=== PATIENT | female | born 2000 | race Caucasian/White ===

== ENCOUNTER 2021-11-16 09:08 | Outpatient (CLI) | payer OTHER, SELFPAY ==
--- NOTE | ~2021-11-16 | MR_ITS ---
EXAMINATION: MR foot RT wo con DATE: 11/16/2021 09:52 INDICATION: First metatarsal fibular sesamoid pain. TECHNIQUE: Magnetic resonance imaging (MRI) of the right fore/mid foot was performed without intraven ous contrast. Sequences included sagittal T1-weighted FSE, sagittal fluid sensitive FSE STIR, coronal PD-weighted FS FSE, coronal T1-weighted FSE, axial PD-weighted FS FSE, and axial PD-weighted FSE. COMPARISON: Radiographs dated 05/07/2019 and 10/05/2015 FINDINGS: Marrow edema at the fibular sesamoid of the right first metatarsal consistent with sesamoiditis. Ther e is linear low signal extending transaxial to the long axis of the foot across the fibular sesamoid which did not appear bipartite on the prior radiograph consistent with fragmentation/fracture. Bone m arrow was otherwise normal throughout the remainder of the mid and forefoot. No fracture or pathologi c marrow replacing process. Joint spaces appear preserved with no erosions to suggest inflammatory ar thritis. No joint effusions, tenosynovitis or other abnormal fluid collections. Lisfranc ligament com plex as well as the collateral ligament complex at the metatarsophalangeal and interphalangeal joints are normal. Visualized intrinsic musculature of the foot and visualized portions of the flexor and e xtensor tendons are normal. IMPRESSION: 1. Marrow edema and fragmentation of the right hallux fibular sesamoid which could represent sequela of either acute fracture or chronic sesamoiditis Reviewed, dictated and finalized at location A. INUITY COORDINATOR IMPRESSION: 1. Marrow edema and fragmentation of the right hallux fibular sesamoid which co uld represent sequela of either acute fracture or chronic sesamoiditis
== END 2021-11-16 09:09 ==
LOC: MICIMG 09:10
PROVIDERS: PCP Family Medicine; Visit Provider Podiatrist Foot & Ankle Surgery
DX: M79.661 Pain in right lower leg (principal)
CPT/HCPCS: 73718

== ENCOUNTER 2021-12-31 00:47 | Day surgery (SDC) | payer OTHER, SELFPAY ==
[2021-12-27 12:59] VITALS: BMI 31.4
--- NOTE | 2021-12-27 13:45 | PC.NURSE ---
Report to the Outpatient Waiting Room, entrance under the green pavilion located off [facility], at time __0730_ on date _12/31_. OR Time: _929 . - You and your visitor will be asked a series of questions to screen for COVID 19 for your protection. - A mask is required within the hospital. Preoperative COVID Testing Requirements: No COVID Test needed if: Patients may have clear liquids (water, carbonated beverages, clear teas, apple juice) until 3 hours prior to surgery with a maximum of 20 ounces. - No food from midnight until time of surgery - Infants may have breast milk until 4 hours before surgery, formula 6 hours prior to surgery. - Children will be allowed to drink immediately following surgery. If applicable, please bring a bottle or sippy cup to assist with drinking. Juice, water, soda, and popsicles are readily available. For infants on formula, please bring formula the day of surgery. Pacifiers are allowed. Take the following medications with a SIP of water the morning of surgery: __NONE Medications to discontinue per physician NONE Date to take last dose Please no make-up, nail guyanese, hairspray, perfume, deodorant, or body powder the day of surgery. No jewelry (including any body piercings) or valuables the day of surgery, leave them at home. Please take a shower or bath the night before, or the morning of, surgery with an antibacterial soap. Wear comfortable, loose fitting clothing. Children are encouraged to wear pajamas. - Jewelry must be removed prior to entering the operating room. Rings and piercings that are not removed may be cut off. - The hospital will not accept responsibility for valuables. - Please leave all valuables, including medications, at home the day of surgery. If you are going home after surgery, a licensed oil transport driver must drive you home. - NO public transportation without another adult. - We recommend that an adult stay with you for 24 hours following discharge. - We also recommend that you do not drive, make important decision, drink alcoholic beverages, or take any drugs that were not prescribed by your health care provider for at least 24 hours after your discharge time. For Pediatric surgeries, we recommend two adults accompany the child home (only one inside the building at this time). One visitor will be allowed to accompany the patient into the hospital. Patients visitor will be instructed to remain with patient at all times or leave the building. We will allow the visitor to come back to the postoperative area when patient is ready. Follow any additional instructions given to you from your surgeon. Telephone instructions given to __KIRSTEN and asked if any additional questions and then verbalized understanding. Patient advised to call surgeon office or pre surgery nurse liaison [phone] if any additional questions.
--- NOTE | ~2021-12-31 | XR_ITS ---
EXAMINATION: XR surgery orthopedic EXAM DATE: 12/31/2021 10:28 INDICATION: EXCISION FIBULAR SESAMOID RT FOOT TECHNIQUE: Fluoroscopy used during XR surgery orthopedic performed by Dr. Sly Vidal JR MD. Radiologist was not present for the imaging or procedure. Total fluoroscopic time of 9 seconds. The DAP for this procedure was 0.9 cGycm2. A total of 2 images sent to PACS from the exam. FINDINGS: Frontal image centered over the right 1st metatarsophalangeal joint demonstrates some subc utaneous gas along the expected location of 1st metatarsal lateral sesamoid. Correlate with procedur e note. IMPRESSION: Fluoroscopy used during sesamoid surgery. Reviewed, dictated and finalized at location A.
--- NOTE | 2021-12-31 07:11 | WPDHPUPDATE1 ---
History and Physical Update Update Date/Time: 12/31/21 07:11 History and Physical has been reviewed, including an updated exam of the patient. There are NO changes in the patient's condition. Risks, benefits, and alternatives have been discussed and questions answered. Patient agrees to proceed with procedure.
[2021-12-31 07:54] VITALS: BP 130/73; PULSE 74; RESP 18; TEMP 36.4; O2SAT 99
[2021-12-31] MEDS: LACTATED RINGERS 1,000 ML 30 ML IV CONT (08:05)
--- NOTE | 2021-12-31 08:50 | WPDANESEPPF ---
Anes - Initial Pre Proc Eval Procedure: Operation Date: 12/31/21 09:30 Proposed Procedures p Excision Fibular Sesamoid Right Foot - Sly Vidal JR, MD Date/Time: 12/31/21 08:50 Surgeon: Sly Vidal JR, MD Pre Op Diagnosis: chronic fibular sesamoiditis right foot Patient Data Age: 21 Gender: F Height: 1.7 m Weight: 97.1 kg Last Vital Signs Temp 36.4 C L 12/31/21 07:54 Pulse 74 12/31/21 07:54 Resp 18 12/31/21 07:54 BP 130/73 12/31/21 07:54 Pulse Ox 99 12/31/21 07:54 Allergies Allergy/AdvReac Type Severity Reaction Status Date / Time peanut Allergy Unknown Unknown Verified 12/31/21 07:50 Home Medications Medication Instructions Recorded Confirmed Type cetirizine [Zyrtec] 10 mg PO DAILY 12/27/21 12/31/21 History Patient hx anesthesia problems: none Family hx anesthesia problems: none Results Review: All pre-operative results and documents have been reviewed as part of the pre-operative evaluation. 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 Informed Consent: The patient's anesthetic plan and its attendant risks and benefits were discussed with the patient/family/POA. Questions were solicited and answers provided to the satisfaction of the patient/family/POA.
[2021-12-31] MEDS: ceFAZolin 2 GM/D5W 50 ML 2 GM/50 ML BAG IVPB (09:46)
[2021-12-31] MEDS: LIDOCAINE HCL 2% PF INJ 5 ML VIAL 20 ML INFILTRATE (10:07)
[2021-12-31 10:39] VITALS: BP 109/69; PULSE 64; RESP 14; O2SAT 97
--- NOTE | 2021-12-31 10:53 | W.PM.PROC2 ---
Procedure Note - Detailed Date of Procedure 12/31/21 Pre-op Diagnosis Chronic fibular sesamoiditis right foot with non healing transverse fracture Post-op Diagnosis Same Procedure Performed Excision of fibular sesamoid right foot Surgeon Sly Vidal JR, RENE Anesthesia General and Local Indications Chronic pain sub first metatarsal phalangeal joint right foot Description of Procedure Under mild sedation, the patient was brought in to the operating room, placed on the operating table in the supine position. A pneumatic ankle tourniquet was placed about the patient's ankle. Following general anesthesia, local anesthesia was obtained about the affected right foot utilizing 20 mL of a one to mix of 2% Lidocaine plain and 0.5% Marcaine plain to the tibial nerve. The foot was then scrubbed, prepped, and draped in the usual aseptic manner. An Esmarch bandage was then used to exsanguinate the patient's foot and the pneumatic ankle tourniquet was then inflated. Next, an incision was made starting along the plantar aspect of the first metatarsal phalangeal joint extending proximally 3cm. All bleeders were cauterized as necessary. Next the dissection was continued down to the fibular sesaoid it was exposed medially and laterally with Nita retractors. Fluroscopy was used to make certain that the correct sesamoid was dissected and than a 15 blade and [place] periosteal elevator was used to free the sesamoid, it was completely dissected and sent for gross and histopathology. The wound site was flushed with sterile saline. The surrounding tissue about the resected fibular sesamoid was identified and firmly reapproximated with 2-0 Vicryl. Next, the subcutaneous fat layer was reapproximated with 4-0 Vicryl. The deep subcutaneous tissue was reapproximated with 3.0 Vicryl and the skin was reapproximated with 3.0 Prolene in Vertical mattress and Simple interrupted suture technique. Upon completion of the procedure, the plantar incision was dressed with adaptic, 4x4 gauze, kerlix and coban. The pneumatic ankle tourniquet was then deflated and a prompt hyperemic response was noted to all digits of the affected foot. A CAM Walker boot was then applied. The patient did very well with the procedure and the anesthesia. The patient was transferred to the recovery room with vital signs stable and vascular status intact to all toes of the affected foot. Following a period of postoperative monitoring, the patient will be discharged home on the following written and oral postoperative instructions: 1. The patient should keep the dressing clean, dry, and intact. Use a cast protector bag with showers. 2. The patient will be strictly protected weight bearing with CAM walker boot. 3. Patient should ice and elevate the affected foot when at rest. 4. The patient is to contact Dr. Vidal for all postop care and if any problems arise. 5. Prescriptions were written for Percocet 5/325 dispensed 40 to be taken 1 p.o. q.4-6 hours as needed for severe pain. Estimated Blood Loss -1.0 Drains No Packing No Pathology Yes Complications No immediate complications Condition Stable Disposition Same day
[2021-12-31 11:10] VITALS: BP 107/68; PULSE 66
[2021-12-31] MEDS: oxyCODONE HCL (*CRX) 5 MG TAB IR PO (11:23)
[2021-12-31 11:40] VITALS: BP 125/82; PULSE 65
== END 2021-12-31 12:10 | disposition home or self-care (01) ==
PROVIDERS: PCP Family Medicine; Visit Provider Podiatrist Foot & Ankle Surgery
PROC: (CPT 28315; principal; 2021-12-31 09:30)
DX: M25.871 Other specified joint disorders, right ankle and foot (principal); M84.474A Pathological fracture, right foot, initial encounter for fracture; M19.071 Primary osteoarthritis, right ankle and foot; E66.9 Obesity, unspecified; Z68.33 Body mass index [BMI] 33.0-33.9, adult
CPT/HCPCS: 28315; 88304; 88309; 88311; A9270; J0690; J2250; J2270; J2704; J7120

== ENCOUNTER 2024-11-03 01:41 | Emergency (ER) | payer OTHER, MEDICAID, SELFPAY ==
--- OUTSIDE RECORDS SUMMARY | 2024-11-03 01:43 | XMS_ITS | Referral Summary ---
Author Organization [facility] Address [address] [place] [address] Phone Care Team Providers Care Valving Machine Operator Name Role Phone Ananya Quesada NP Primary Care Provider [phone] Jluis Robles MD Unavailable [phone] Allergies Active Allergy Reactions Criticality Noted Date Comments [place] Rash Medium 02/10/2011 Cat's Claw Eye irritation Low 02/10/2011 Peanut Oil Urticaria Medium 04/08/2010 Trichophyton Mentagrophytes Allergenic Extract Rash Medium 02/10/2011 Medications cetirizine (ZyrTEC) 10 mg tablet Take 1 tablet (10 mg total) by mouth daily Active vit 47-myrj-abbbs-dha 27mg iron- 800 mcg-250 mg capsule Take by mouth Active docusate sodium (COLACE) 100 mg capsuleIndication s:constipation,St ool Softener Take 1 capsule (100 mg total) by mouth 2 (two) times a day 30 capsule 4 Active Additional Information Patient not taking.Reported on 05/31/2024 gabapentin (NEURONTIN) 300 mg capsule Take 1 capsule (300 mg total) by mouth 2 (two) times a day 60 capsule 11 4 025 Active Additional Information Patient not taking.Reported on 05/31/2024 ibuprofen (ADVIL,MOTRIN) 600 mg tablet Take 1 tablet (600 mg total) by mouth 4 (four) times a day 30 tablet 4 Active Additional Information Patient not taking.Reported on 05/31/2024 lidocaine (LIDODERM) 5 % Place 2 patches on the skin daily Remove & discard patch within 12 hours or as directed by MD. 5 patch 1 4 Active NIFEdipine (PROCARDIA XL/ADALAT CC) 30 mg 24 hr tablet Take 1 tablet (30 mg total) by mouth daily 30 tablet 11 4 025 Active Additional Information Patient not taking.Reported on 05/31/2024 polyethylene glycol (MIRALAX) 17 gram/dose bulk powderIndications :constipation Take 17 g by mouth daily for 14 days 238 g 4 Active oxyCODONE (ROXICODONE) 5 mg immediate release tabletIndications :Pain Take 1 tablet (5 mg total) by mouth every 4 (four) hours as needed for pain 15 tablet 4 Active Additional Information Patient not taking.Reported on 05/31/2024 spironolactone (ALDACTONE) 50 mg tablet Take 1 tablet (50 mg total) by mouth daily 30 tablet 11 4 025 Active norethindrone (MICRONOR) 0.35 mg tabletIndications : Contraception Take 1 tablet (0.35 mg total) by mouth daily 1 po qd at same time of day 84 tablet 3 4 Active Active Problems Problem Noted Date Diagnosed Date Calculus of gallbladder with out cholecystitis without obstruction 04/18/2024 Overview (04/20/2024): 04/18/2024, 21:30 (Susie): Earlier today, patient reported right upper quadrant pain radiating through to her back. Denies nausea or vomiting. Right upper quadrant ultrasound ordered and performed - gallbladder f ull of stones without duct dilation according to the tech - final read pending. Mild right upper quadrant tenderness to palpation. Question of cholecystitis confounded by possible endometritis. Patient has been febrile and has an elevated white blood cell count. Consulted Dr. Raj Ugarte with [facility] who advised CT scan with IV contrast (ordered), and he will see her in the morning. Reviewed everything with the patient and answered questions to her satisfaction. 04/19/2024, PPD#3 (Helm) Patient continues to have RUQ and some pain that radiates to her back WBC: 18 > 22 > 23.4 despite antibiotics Continue amp/gent/clinda General surgery on board, planning for RA Lsc cholecystectomy for treatment of cholecystitis Recommend blood cultures to be drawn, RVP and urine culture Last febrile 04/18 on 2316 04/20/2024, POD#1 (Alicja) lsc martin S/p uncomplicated RA cholecystectomy WBC 23.4 > 16.7 Safe for discharge per general surgery Working on post-op pain control Antibiotics discontinued care following vaginal delivery 04/17 Overview (04/20/2024): 04/17/2024 PPD #1 (CHRISTY) 23 yo s/p of pre-term male . VSS, Afebrile Nifed 30 mg XL Magnesium See problem list O negative, rolando +, s/p rhogam /, Rubella Immune Baby O+ Rhogam ordered Mom is reporting chills/shaking. All labs and and Vitals are WNL - labs pending Baby is doing well Normal exam Not yet ambulating d/t mag, voiding, tolerating PO. Lochia WNL MOF: Breast MOC: undecided - discussed options VTE: Lovenox and SCDs Dispo: continue routine care 04/18/2024 PPD #2 (CHRISTY) VSS, Afebrile Nifed 30 mg XL S/p Magnesium Labs WNL O negative, rolando +, s/p rhogam /, Rubella Immune Baby O+ Rhogam given Mom is reporting RUQ pain Tender to palpation Ultrasound ordered Mom febrile overnight Amp/gent and clinda given Currently afebrile WBC 13>18>22 Uterus tender Baby is doing well Ambulating, voiding, tolerating PO. Lochia WNL MOF: Breast MOC: undecided - discussed options VTE: Lovenox and SCDs Dispo: continue routine care 04/19/2024, PPD#3 (Alicja) See other problems Ambulating, voiding, tolerating PO. Lochia WNL MOF: Both MOC: undecided - discussed options VTE: Lovenox (held for surgery) and SCDs Dispo: pending fever and treatment of acute cholecystitis 04/20/2024, PPD#4 (Alicja) See other problems Ambulating, voiding, tolerating PO. Lochia WNL Notable post-op pain: will add gabapentin 300 BID and lidocaine patches MOF: Breast MOC: undecided - discussed options VTE: Lovenox and SCDs Dispo: today pending pain control Encounter for induction of labor 04/15/2024 Overview (04/16/2024): Hillary Mosley is a 23 y.o. female at 36w3d who is dated by L=8wk and is being admitted for an induction of labor secondary to preeclampsia with severe features . Admit to L&D: Consents signed and placed in chart. Labs: O negative - s/p Rhogam (02/25), H&H: 11.6/34.2 . Induction of labor with misoprostol 25 mcg vaginally . - discussed induction process with pt including cervical ripening medications, CC, OT and AROM FWB: Reactive NST. Will initiate continuous monitoring ID: 3rd trimester HIV (>28 wga) negative on 02/16. GBS negative on 04/08 . RPR on admission: pending. History of genital HSV or HSV 1/2 seropositivity: No. Membrane Status: intact. Indications for UDS: none. Verbal consent obtained for UDS: Not indicated. MOF: Plans to breastfeed. Urine drug screen not indicated. Patient informed of results: N/A. MOC: Undecided on contraception. Considering hormonal IUD Pain management: Desires epidural. Post DVT prophylaxis: The patient has the following MAJOR risk factors BMI >/= 40 and the following MINOR risk factors preeclampsia. enoxaparin 40 mg daily will be ordered for VTE prophylaxis . 04/15/24, 2200 (KR) SVE without change, despite frequent ctx Patient comfortable FHT reactive S/p miso 25mcg PV x1. Will give another dose now Continue IOL 04/16/2024, 0900 (JACKIE): S/p misoprostol x 2, transitioned to OT S/p epidural - getting comfortable FHT cat 2 - rare LDs r/t low BP - anesthesia to bedside SVE with consent: /-3, unable to get good assessment of head d/t patient discomfort OT infusing at 6mu/hr - titrate as able per protocol 04/16/2024, 1040 (JACKIE): Pt now comfortable with epidural Discussed risk/benefit of AROM - all questions answered SVE: 50/-3, head well applied AROM and IUPC placed with consent (posterior placenta - IUPC guided anterior) Clear fluid with small clot Continue IOL 04/16/2024, 1630 (JACKIE): At bedside to assess labor progression Pain has been poorly controlled with epidural requiring several bolus doses. However, difficult to continue to dose epidural d/t BP response and subsequent late deceleration - pain located largely around urethra - denies allergy to iodine, shellfish or latex. No signs of allergic reaction Anesthesia to bedside for BP management and patient repositioned to her side S/p multiple position changes SVE and membrane sweep with consent: /-2, some very mild swelling noted posteriorly and slight caput Contractions are low amplitude and frequent - IUPC replaced, flushed and monitor reset. Resting tone 30-40mmHg - uterus palates soft - continue to monitor closely Plan: Stop OT and give 1mg IV propranolol, IV diphenhydramine and TUMS for cervical swelling. Restart OT in one hr at 2mu/hr and titrate as able Discussed with Dr. Helm Severe pre-eclampsia in third trimester 04/15/20 24 Overview (04/20/2024): 04/15/2024, 1530 (JACKIE): MR BP in clinic, now SR x 2 requiring spot treatment with IV labetalol Will initiate magnesium sulfate 4 gram bolus followed by 2 gram maintenance Give one time dose of nifedipine XL 30 mg - consider daily dosing pending BP control Daily labs: Ptl: normal LFTs: normal Creatinine: 0.5 Pr/Cr: 0.19 04/17/2024 PPD #1 (CHRISTY) BP's Stable. Magnesium infusing until 1999 Neuro checks WNL Nifed 30 mg XL given today Labs ordered for this morning 04/19/2024, PPD#3 (Alicja) - BP have been normotensive to mild range - completed magnesium therapy - Continue nifedipine 30 - PreE labs stable - will need BP check 04/19/2024, PPD#4 (Alicja) VSS Continue nifed 30 PreE labs stable Needs BP check in 2-3 days Preeclampsia, third trimester 04/15/2024 UTI (urinary tract infection) 10/09/2023 Rh negative state in antepartum period Supervision of normal first , antepartu m 10/05/2023 Class 3 severe obesity due t o excess calories without serious comorbidity with body mass index (BMI) of 40.0 to 44.9 in adult 01/09/2023 Assessment & Plan (02/10/2023 12:20 PM CDT): Discussed CHIP program,Calorie deficit and exercise Assessment & Plan (01/09/2023 2:01 PM CDT): Calorie intake discussed. Labs ordered. Healthy, low carbohydrate lifestyle and exercise for 150min/week recommended Allergic rhinitis 03/07/2012 01/09/2023 Assessment & Plan (02/10/2023 12:19 PM CDT): Discussed switching OTC allergy medications May benefit from seeing signals collector/analyst Assessment & Plan (01/09/2023 1:59 PM CDT): Follows with ENT, recently had turbinate resection procedure. Also being worked up for ARNIE. Has seen an signals collector/analyst in the past and had allergy shots offered but unable to do at that time d/t costs/time. She also has eczema rash that flares, inquiring about steroid shot to help, rash not present today. Discussed alternatives, will trial Atarax. Resolved Problems Problem Noted Date Diagnosed Date Resolved Date Popliteal cyst 07/29/2014 01/09/2023 01/09/2023 Right knee pain 07/29/2014 01/09/2023 01/09/2023 Acute serous otitis media 03/07/2012 01/09/2023 Immunizations Immunization Administration Dates Next Due DTaP 03/22/2005, 1,02/19/2000, 000,1999 HPV, Quadrivalent 05/21/2013,01/01/2013,10/30/19 13 Hep A, Pediatric 10/30/2012,04/08/2010 Hep B, Adolescent or Pediatric 07/25/2000,1999,1999 HiB 02/19/2000,1999,1999 Hib (PRP-D) 12/28/2000, 0,1999, 000 Hib (PRP-T) 12/28/2000 IPV 03/22/2005, 1,1999, 000 Influenza, Unspecified 09/11/2022,09/11/2021 MMR 03/22/2005,07/25/2000 Meningococcal Conjugate (Menveo) 10/30/2012 Meningococcal MCV4P (Menactra) 04/08/2016,2012 PPD TEST 03/22/2005,07/25/2000 Pneumococcal Conjugate PCV 13 02/19/2000 Pneumococcal Conjugate, Unspecified 12/28/2000,1 1999,02/19/2000 Pneumococcal Polysaccharide PPV23 12/28/2000, Tdap 02/26/2024,04/08/2010 Varicella 10/30/2000 Social History Tobacco Use Types Packs/Day Years Used Date Smoking Tobacco: Never Passive Smoke Exposure: Never Smokeless Tobacco: Never Tobacco Cessation:Counseling Given: Not Answered Social Connection and Isolat ion Panel [NHANES] Answer Date Recorded In a typical week, how many times do you talk on the phone with family, friends, or neighbors? More than three times a week 04/15/2024 How often do you get togethe r with friends or relatives? More than three times a week 04/15/2024 Attends Orthodox Services Not on file 04/15 Active Member of Clubs or Organizations Not on f ile 04/15/2024 Attends Club or Organization Meetings Not on blas e 04/15/2024 Marital Status Not on file 04/15/2024 AUDIT-C Answer Date Recorded Q1: How often do you have a drink containing alc ohol? Never 04/15/2024 Average Number of Drinks Not on file 024 Frequency of Binge Drinking Not on file 01/2024 Overall Financial Resource Strain (CARDIA) Answe r Date Recorded How hard is it for you to pa y for the very basics like food, housing, medical care, and heating? Not hard at all 04/15/2024 PHQ-2 Answer Date Recorded PHQ-2 Total Score (If total score is 3 or more points, staff should administer the PHQ-9) 0 04/15/2024 [facility] - Occupational Stress Questionnaire Answer Date Recorded Do you feel stress - tense, restless, nervous, or anxious, or unable to sleep at night because your mind is troubled all the time - these days? Not at all 04/15/2024 Exercise Vital Sign Answer Date Recorde d On average, how many days pe r week do you engage in moderate to strenuous exercise (like a brisk walk)? 0 days Minutes of Exercise per Session Not on file 04/15/2024 Hunger Vital Sign Answer Date Recorded Within the past 12 months, y ou worried that your food would run out before you got the money to buy more. Never true 04/15/20 24 Within the past 12 months, t he food you bought just didn't last and you didn't have money to get more. Never true 04/15/2024 PRAPARE - Transportation Answer Date Re corded In the past 12 months, has l ack of transportation kept you from medical appointments or from getting medications? No 01/2024 In the past 12 months, has l ack of transportation kept you from meetings, work, or from getting things needed for daily living? No 04/15/2024 [place] Depression Scale Answer Date Recorded [place] Depression Scale Total 0 05/31/2024 The thought of harming myself has occurred to me . Never 05/31/2024 Housing Stability Vital Sign Answer Mode e Recorded In the last 12 months, was t here a time when you were not able to pay the mortgage or rent on time? No 04/15/2024 Number of Times Moved in the Last Year Not on fi le 04/15/2024 At any time in the past 12 m [facility], were you homeless or living in a alf (including now)? No 04/15/2024 Personal Safety Answer Date Recorded Have you ever been in or are you currently in a harmful physical or emotional relationship or is someone making you feel afraid or unsafe? Denies 04/15/2024 Comments No Sex and Gender Information Value Date Recorded Sex Assigned at Not on file Legal Sex Female 6:49 AM CHILD CARE GROUP LEADER Gender Identity Not on file Sexual Orientation Not on file Last Filed Vital Signs Vital Sign Reading Time Taken Comments Blood Pressure 120/64 05/31/2024 3:32 PM CDT Pulse 77 04/20/2024 9:15 AM CDT Temperature 36.7 C (98 F) 04/20/2024 12:00 PM CDT Respiratory Rate 20 04/20/2024 6:15 AM CDT Oxygen Saturation 95% 04/20/2024 6:15 AM CDT Inhaled Oxygen Concentration - - Weight 104.3 kg (230 lb) 05/31/2024 3:32 PM CDT Height 170.2 cm (5' 7 ) 05/31/2024 3:32 PM CDT Body Mass Index 36.02 05/31/2024 3:32 PM CDT Plan of Treatment Not on file Procedures Procedure Name Priority Date/Time Associated Diagnosis Comments HEPATITIS C ANTIBODY Routine 10/05/2023 2:38 PM CHILD CARE GROUP LEADER Encounter for supervision of normal in first trimester, unspecified PAP WITH REFLEX TO HIGH RISK HPV Routine 10/05/2023 12:35 PM CHILD CARE GROUP LEADER Screening for cervical cancer from Last 3 Months or Most Recently Relevant to Health Maintenance Results * Hepatitis C antibody Blood (10/05/2023 2:38 PM CHILD CARE GROUP LEADER) Hep C Ab Nonreactive Nonreactive MAGALIE CAPPS Comment: Antibodies to HCV not detected. Does NOT exclude the possibility of recent exposure to HCV. Current interpretive data was last revised on 22 Interpretive Data Nonreactive: Antibodies to HCV not detected. Does NOT exclude the possibility of recent exposure to HCV. Equivocal: Equivocal for HCV antibodies. Supplemental molecular testing will be automatically performed to determine infection status in accordance with current CDC screening recommendations. Reactive: Positive for HCV antibodies. This may represent current or past HCV infection. Supplemental molecular testing will be automatically performed to determine current infection status in accordance with current CDC screening recommendations. Interpretive data was last revised on 2019. Blood 10/05/2023 2:38 PM CHILD CARE GROUP LEADER 10/05/2023 7:09 PM CHILD CARE GROUP LEADER Barbara Shine MD LAB MICROBIOLOGY - GENERA L ORDERABLES Edited Result - Final MAGALIE [address] [facility] Department [place] [address] * Pap with reflex to High Risk HPV and Genotyping (Cytology Component) (10/05/2023 12:35 PM CHILD CARE GROUP LEADER) Thin prep (Pap test) 10/05/2023 12:35 PM CHILD CARE GROUP LEADER 10/06/2023 2:11 AM CHILD CARE GROUP LEADER Narrative PATHOLOGY [facility] - 10/11/2023 9:36 AM CHILD CARE GROUP LEADER EPIC results best viewed via link to PDF [facility] [place] [address] Note to Patients: This report may contain a detailed description of human tissue sent by a health care provider to the laboratory for pathologic evaluation. The content of this report is essential for diagnosis and may provide important critical findings. This information may be unfamiliar to patients to review without a medical professional present. It is advised that the patient review this report in the presence of a health care provider who can answer questions and explain the details. CYTOPATHOLOGY REPORT FINAL Patient Name: HILLARY MOSLEY Gender: F : 2000 (Age: 23) Address: [address] [place] [address] Hospital #: [id number] Service: DEFAULT Location: Patient Type: [facility] SPECIMEN Taken: 10/05/2023 Received: 10/06/2023 Accessioned: 10/06/2023 Reported: 10/11/2023 Physician(s): Barbara Shine M.D. FINAL INTERPRETATION SOURCE OF SPECIMEN Liquid based Thin Prep pap with Reflex HPV: STATEMENT OF ADEQUACY - Satisfactory for evaluation - Endocervical cells/transformation zone sample present GENERAL CATEGORIZATION: - Negative for squamous intraepithelial lesion or malignancy INTERPRETATION: - Shift in milena suggestive of bacterial vaginosis - Acute inflammation present lwl/10/11/2023 09:36 Tyler Vaughn MS, CT(ASCP)PA Report Electronically Reviewed and Signed Out By Tyler Vaughn MS, CT(ASCP)CHERYL 10/11/2023 09:36:46 Cervicovaginal Cytology (Pap Test) Disclaimer: The Pap test is a screening test used to detect cervical cancer and its precursors; it is not a diagnostic procedure. False negative and false positive results do occur. Pap test results should be interpreted in the context of pertinent clinical information and biopsy results as indicated. [facility] Clinical Laboratory Improvement Amendments (CLIA) mandate that cytologic and histologic results be correlated for laboratory automotive quality manager & improvement standards. FOR ALL HIGH-GRADE CASES we request submission of follow-up histological material and/or reports that have not been previously provided so that we may fulfill said required standards. Gross Description A. Liquid based Thin Prep pap with Reflex HPV: Cervical/vaginal - Screening ThinPrep with GC/Chlamydia Clinical Diagnosis and History Last Menstrual Period: 08/04/23 The patient is a 23 year old woman with abnormal pap. Report Images and scanned documents, if included only viewable in PDF version The performance characteristics of some immunohistochemical stains, in-situ hybridization and fluorescence in-situ hybridization tests and immunophenotyping by flow cytometry cited in this report (if any) were determined by the Surgical Pathology Department at [facility] as part of an ongoing type disk quality control supervisor program and in compliance with federally mandated regulations drawn from the Clinical Laboratory Improvement Act of 1988 (CLIA '88). Some of these tests rely on the use of analyte specific reagents and are subject to specific labeling requirements by the US Food and Drug Administration. Such diagnostic tests may only be performed in a facility that is certified by the Department of Health and Human Services as a high complexity laboratory under CLIA '88. The FDA has determined that such clearance or approval is not necessary. This test is used for clinical purposes. It should not be regarded as investigational or for research. Nevertheless, federal rules concerning the medical use of analyte specific reagents require that the following disclaimer be attached to the report: This test was developed and its performance characteristics determined by the Surgical Pathology Department of [facility]. It has not been cleared or approved by the U. S. Food and Drug Administration. Barbara Shine MD LAB CYTOLOGY ORDERABLES F inal Result [facility] from Last 3 Months or Most Recently Relevant to Health Maintenance Insurance IDPA [facility] CHOICE PLUS IDPA Advance Directives For more information, please contact: [phone] * Full Code (Latest Code Status on File) Date Activated Date Inactivated Comments 04/17/2024 1:22 AM 04/20/2024 5:03 PM * Full Code Date Activated Date Inactivated Comments 04/15/2024 3:50 PM 04/17/2024 1:22 AM Full CPR in ca se of cardiopulmonary arrest Care Teams Valving Machine Operator Relationship Specialty Start Date End Date Ananya Quesada NP [address] [facility] [address] [place] [address] PCP - General Family Medicine 01/09/23 Jluis Robles MD [address] [place] [id number] Otolaryngology 01/09/23
--- OUTSIDE RECORDS SUMMARY | 2024-11-03 01:43 | XMS_ITS | Patient Health Summary ---
Author Organization [facility] Address [address] [place] [address] Care Team Providers Care Pill Packer Name Role Phone Unavailable Primary Care Provider Unavailabl e Note from [facility] [place] [facility] [place]non-owned Affiliates and Associated Physician Practices is amultiple site organization consisting of ambulatory clinics and hospital sitesin [place], [place], [place] and [place]. This disclosure is being madepursuant to the Care Everywhere program and may not contain all information available regarding this patient. Last updated 18.[facility] Allergies * Cat's Claw * Grassleaf Sweetflag Rhizome * Trichophyton Mentagrophytes * Peanut Oil(Urticaria) Medications * Be aware that medications may not be up to date on this document. Alwaysverify current medications with the patient. * adapalene-benzoyl peroxide (EPIDUO) 0.1-2.5 % gel(Started 12/03/2015) Apply to affected area at bedtime 2 refills left * clindamycin (CLINDAGEL) 1 % gel(Started 12/03/2015) Apply to affected area 2 times daily 2 refills left * triamcinolone acetonide (KENALOG) 0.1 % cream(Started 02/16/2017) DAMON EXT AA BID FOR 14 DAYS 1 refill left Active Problems Problem Noted Date Diagnosed Date Popliteal cyst 07/29/2014 Right knee pain 07/29/2014 Allergic rhinitis 03/07/2012 Acute serous otitis media 03/07/2012 Immunizations * DTaP VACCINE IM (6wk-6yrs)(Given 03/22/2005, 12/28/2000, 02/19/2000, 1999, 1999) * HEP A PEDS 2 DOSE(Given 10/30/2012, 04/08/2010) * HEP B VACCINE, PED/ADOL(Given 07/25/2000, 02/19/2000, 1999) * HIB BOOSTER(Given 12/28/2000, 02/19/2000, 1999, 1999) * Human Papilloma Virus Quadrivalent Vaccine(Given 05/21/2013, 01/01/2013, 10/30/2012) * MENINGOCOCCAL CONJUGATE (MCV4P)(Given 04/08/2016, 10/30/2012) * MMR(Given 03/22/2005, 07/25/2000) * PNEUMOCOCCAL CONJ, PEDS(Given 12/28/2000, 07/25/2000, 02/19/2000) * POLIO IPV(Given 03/22/2005, 10/30/2000, 1999, 1999) * PPD(Given 03/22/2005, 07/25/2000) * TDAP (7yrs+)(Given 04/08/2010) * VARICELLA(Given 10/30/2000) Social History Tobacco Use Types Packs/Day Years Used Date Smoking Tobacco: Never Smokeless Tobacco: Never Alcohol Use Standard Drinks/Week Comments No 0 (1 standard drink = 0.6 oz pur e alcohol) Sex and Gender Information Value Date Recorded Sex Assigned at Not on file Gender Identity Not on file Sexual Orientation Not on file Last Filed Vital Signs Vital Sign Reading Time Taken Comments Blood Pressure 122/76 05/26/2016 4:01 PM CDT Pulse 64 05/26/2016 4:01 PM CDT Temperature 37.6 C (99.7 F) 06/27/2017 11:12 AM CDT Respiratory Rate - - Oxygen Saturation - - Inhaled Oxygen Concentration - - Weight 70.8 kg (156 lb) 06/27/2017 11:12 AM CDT Height 168.9 cm (5' 6.5 ) 02/16/2017 1:59 PM CDT Body Mass Index - - Procedures * CULTURE STREP GROUP A(Performed 06/27/2017) Performed for Sore throat * STREP A SCREEN - POINT OF CARE (AMB)(Performed 06/27/2017) Performed for Sore throat * MRI LOWER EXT ANY JOINT NON CONTRAST RIGHT(Performed 08/04/2014) Performed for Right knee pain, Popliteal cyst, right * US EXTREMITY NON VASCULAR RIGHT(Performed 07/20/2014) Performed for Cyst of right knee joint * XR KNEE LEFT 3VW(Performed 04/16/2012) Performed for Left knee injury * ALLERGEN PEDIATRIC MARCH PROFILE IGE(Performed 03/25/2009) Results * CULTURE STREP GROUP A (06/27/2017 11:34 AM CDT) Beta-Strep Culture, Group A Only Negative [facility] ACCOUNT BILL Microbiology ENTIRE THROAT (SURFACE REGION OF NECK) / Unknown 06/27/2017 11:34 AM CDT 06/27/2017 Narrative Resulting Agency Comment [facility] [address] [id number] Leobardo Parmar DO LAB - MICROBIOL OGY ORDERABLES [facility] ACCOUNT BILL [address] [place] [address] * STREP A SCREEN - POINT OF CARE (AMB) (06/27/2017) Strep A Rapid POCT Negative Negative Strep A Internal Control Present Other ENTIRE THROAT (SURFACE REGION OF NECK) / Unknown 06/27/2017 Leobardo Parmar DO LAB - POINT OF CARE ORDERABLES * MRI LOWER EXT ANY JOINT NON CONTRAST RIGHT (08/04/2014 4:56 PM DOWEL INSERTING MACHINE OPERATOR) Anatomical Region Laterality Modality Lower Extremity Magnetic Resonan ce 08/04/2014 6:04 PM DOWEL INSERTING MACHINE OPERATOR Impressions 08/04/2014 6:22 PM DOWEL INSERTING MACHINE OPERATOR 1. Popliteal cyst, with maximum dimensions of 5.7 x 2.3 x 2.3 cm. This contains a few fine internal septations. There is no evidence of leakage/rupture. 2. 1.4 x 0.6 cm ganglion cyst along the anterior aspect of the proximal tibiofibular joint. 3. Otherwise normal MRI of the knee. Narrative 08/04/2014 6:22 PM DOWEL INSERTING MACHINE OPERATOR EXAM: MRI right knee without intravenous contrast HISTORY: 14-year-old female with knee pain and bump on the back of the knee, but no known injury. Clinical diagnosis of popliteal cyst. TECHNIQUE: MRI examination of the right knee was performed using multiple pulse sequences in multiple planes, without intravenous contrast. COMPARISON: None FINDINGS: The study is interpreted without radiographic correlation. Image quality is good. 2 markers were placed at the posterior medial aspect of the knee to indicate the symptomatic area. Corresponding to the markers, there is a protrusion of fluid from the posterior aspect of the knee extending between the semimembranosus and medial head of the gastrocnemius tendons, consistent with a popliteal cyst. Maximum dimensions are 2.3 x 2.3 cm (axial; series 3 image 15) x 5.7 cm (craniocaudal; series 5 image 22). A few fine internal septa are present within the popliteal cyst but there is otherwise no internal debris. There is no surrounding edema or fluid to suggest leakage or rupture. There is a 1.4 x 0.6 cm T2 hyperintense multilobulated structure along the anterior aspect of the proximal tibiofibular joint (series 5 image 13, series 6 images 18-20) consistent with a small ganglion cyst. The anterior and posterior cruciate ligaments are normal. The medial collateral ligament, conjoined tendon, and iliotibial band are normal. The popliteus is normal. There is no tear of the medial or lateral menisci. The root attachments are intact. The articular cartilage in the medial, lateral, and patellofemoral compartments is normal, without thinning or defect. The patella is positioned normally. The medial and lateral retinacula are intact. The quadriceps and patellar tendons are normal. There is minimum edema in the superolateral aspect of Hoffa's fat (series 5 image 9). Marrow signal is normal. There is no fracture or dislocation. There is no effusion. The muscles are normal in bulk and signal. Procedure Note Fletcher Farmer MD - 08/04/2014 EXAM: MRI right knee without intravenous contrast HISTORY: 14-year-old female with knee pain and bump on the back of the knee, but no known injury. Clinical diagnosis of popliteal cyst. TECHNIQUE: MRI examination of the right knee was performed using multiple pulse sequences in multiple planes, without intravenous contrast. COMPARISON: None FINDINGS: The study is interpreted without radiographic correlation. Image quality is good. 2 markers were placed at the posterior medial aspect of the knee to indicate the symptomatic area. Corresponding to the markers, there is a protrusion of fluid from the posterior aspect of the knee extending between the semimembranosus and medial head of the gastrocnemius tendons, consistent with a popliteal cyst. Maximum dimensions are 2.3 x 2.3 cm (axial; series 3 image 15) x 5.7 cm (craniocaudal; series 5 image 22). A few fine internal septa are present within the popliteal cyst but there is otherwise no internal debris. There is no surrounding edema or fluid to suggest leakage or rupture. There is a 1.4 x 0.6 cm T2 hyperintense multilobulated structure along the anterior aspect of the proximal tibiofibular joint (series 5 image 13, series 6 images 18-20) consistent with a small ganglion cyst. The anterior and posterior cruciate ligaments are normal. The medial collateral ligament, conjoined tendon, and iliotibial band are normal. The popliteus is normal. There is no tear of the medial or lateral menisci. The root attachments are intact. The articular cartilage in the medial, lateral, and patellofemoral compartments is normal, without thinning or defect. The patella is positioned normally. The medial and lateral retinacula are intact. The quadriceps and patellar tendons are normal. There is minimum edema in the superolateral aspect of Hoffa's fat (series 5 image 9). Marrow signal is normal. There is no fracture or dislocation. There is no effusion. The muscles are normal in bulk and signal. IMPRESSION 1. Popliteal cyst, with maximum dimensions of 5.7 x 2.3 x 2.3 cm. This contains a few fine internal septations. There is no evidence of leakage/rupture. 2. 1.4 x 0.6 cm ganglion cyst along the anterior aspect of the proximal tibiofibular joint. 3. Otherwise normal MRI of the knee. Lizbeth Rueda MD MR ORDERABLES * US EXTREMITY NON VASCULAR RIGHT (07/20/2014) Anatomical Region Laterality Modality Lower Extremity, Upper Extremity Other Izabela Tovar MD US ORDERABLES * XR KNEE 3 VW LEFT (04/16/2012) Anatomical Region Laterality Modality Lower Extremity Other Ely Allen MD DIAGNOSTIC IMAGING O RDERABLES * (ABNORMAL) RAST PEDIATRIC PROFILE (03/25/2009 4:07 PM CDT) Allergen Milk <0.35 kU/L [facility] Class 0 [facility] Comment: Test Performed at: [facility] [address] [place] [address] CELSA MICHELLE MD Allergen Soybean 0.58(H) kU/L [facility] Class 1 [facility] Allergen Codfish <0.35 kU/L [facility] 0 [facility] Allergen Dermatophagoides farinae <0.35 kU/L [facility] 0 [facility] Allergen Alternaria alternata 10.90(H) kU/L [facility] Class 3 [facility] Allergen Cat Dander 0.99(H) kU/L [facility] Class 2 [facility] Allergen Dog Dander <0.35 kU/L [facility] 0 [facility] Allergen Egg White <0.35 kU/L [facility] Class 0 [facility] Allergen Wheat 0.65(H) kU/L [facility] Class 1 [facility] Allergen Peanut 0.40(H) kU/L [facility] Class 1 [facility] Allergen Cockroach [place]an <0.35 kU/L [facility] Class 0 [facility] Allergen Dermatophagoides pteronyssinus <0.35 kU/L [facility] Class 0 [facility] Allergen C Herbarum <0.35 kU/L [facility] Class 0 [facility] Allergen Shrimp <0.35 kU/L [facility] 0 [facility] Allergen [place] 0.64(H) kU/L [facility] Class 1 [facility] IgE 71 <EF=247 kU/L [facility] 03/25/2009 4:07 PM CDT 03/25/2009 4:07 PM CDT Izabela Tovar MD LAB - CHEMISTRY TAMARA [facility] Organization Address City/State/ZIP Co de Phone Number [facility] [phone] [place] [address]
--- OUTSIDE RECORDS SUMMARY | 2024-11-03 01:43 | XMS_ITS | Clinical Summary ---
Author Organization [facility] Address [address] [place] [address] Phone Care Team Providers Care Front Desk Supervisor Name Role Phone Ananya Quesada NP Primary Care Provider [phone] Jluis Robles MD Unavailable [phone] Allergies Active Allergy Reactions Criticality Noted Date Comments [place] Rash Medium 02/10/2011 Cat's Claw Eye irritation Low 02/10/2011 Peanut Oil Urticaria Medium 04/08/2010 Trichophyton Mentagrophytes Allergenic Extract Rash Medium 02/10/2011 Medications cetirizine (ZyrTEC) 10 mg tablet Take 1 tablet (10 mg total) by mouth daily Active vit 66-[id number]-[id number]-dha 27mg iron- 800 mcg-250 mg capsule Take [...] cell count. Consulted Dr. Raj Ugarte with [facility] who advised CT scan with IV [...] OTC allergy medications May benefit from seeing bottom turning lathe turner Assessment & Plan (01/09/2023 1:59 PM CDT): Follows with ENT, recently had turbinate resection procedure. Also being worked up for ARNIE. Has seen an bottom turning lathe turner in the past and had allergy shots [...] Polysaccharide PPV23 12/28/2000, Tdap 02/26/2024,04/08/2010 Varicella 10/30/2000 Surgical History Surgery Date Site/Laterality Comments TONSILLECTOMY/ADENOIDECTOMY NASAL TURBINATE REDUCTION HERNIA REPAIR FOOT SURGERY Left Medical History Medical History Date Comments Abnormal Pap smear of cervix Family History Medical History Relation Name Comments Hypertension Father Hypothyroidism Mother Hypothyroidism Sister Breast cancer Neg Hx Colon cancer Neg Hx Ovarian cancer Neg Hx Uterine cancer Neg Hx Relation Name Status Comments Father Mother Sister Social History Tobacco Use Types Packs/Day Years [...] than three times a week 04/15/2024 Attends [employer] Services Not on file 04/15 Active Member [...] staff should administer the PHQ-9) 0 04/15/2024 [facility] - Occupational Stress Questionnaire Answer Date Recorded [...] things needed for daily living? No 04/15/2024 [place] Depression Scale Answer Date Recorded [place] Depression Scale Total 0 05/31/2024 The thought [...] any time in the past 12 m [facility], were you homeless or living in a mcc (including now)? No 04/15/2024 Personal Safety Answer Date Recorded Have you ever been in or are you currently in a harmful physical or emotional relationship or is someone making you feel afraid or unsafe? Denies 04/15/2024 Comments No Sex and Gender Information Value Date Recorded Sex Assigned at Not on file Legal Sex Female 6:49 AM PETROLEUM ANALYST Gender Identity Not on file Sexual Orientation Not on file Obstetrics History Para Term AB IAB SAB Ectopic Multiple Livin g Live Births 1 1 1 0 1 1 Date Outcome GA Total Labor Labor/2nd/3rd Weight Sex Type Anes PTL Rosario A1 A5 Name Clin 2023 36w 4d 0h 38m 0h 30m/0h 08m 2.97 kg (6 lb 8.8 oz) M Vagina l Epidur al Y Livin g 7 9 Yadav Freedom Helm, Michaela Pickens MD Complications:Pre eclampsia, Post Hemorrhage Delivery Location:[facility] ([facility]) Last Filed Vital Signs Vital Sign Reading [...] 05/31/2024 3:32 PM CDT Plan of Treatment Health Maintenance Due Date Last Done Comments Varicella Vaccines (2 of 2 - 2-dose childhood series) 2003 10/30/2000 Regular Well Visit/Exam 18-64 2017 Influenza Vaccine (#1) 2024 09/11/2022, 2021 Cervical Cancer Screening 10/05/2024 10/05/2023 Depression Screening 05/31/2025 05/31/2024, 04/15/2024, 04/15/2024, Additional history exists DTaP/Tdap/Td Vaccine (8 - Td or Tdap) 02/25/2034 02/26/2024, 04/08/2010, 03/22/2005, Additional history exists Hepatitis B Screening Completed 07/25/2000 , 02/19/2000, 1999 Pneumococcal vaccine <65 Completed 001, 12/28/2000, 07/25/2000, Additional history exists HPV Vaccines Completed 05/21/2013, 12/11, 10/30/2012 Hepatitis C Screening Completed 10/05/2023 Procedures Procedure Name Priority Date/Time Associated Diagnosis Comments HEPATITIS C ANTIBODY Routine 10/05/2023 2:38 PM PETROLEUM ANALYST Encounter for supervision of normal in first trimester, unspecified PAP WITH REFLEX TO HIGH RISK HPV Routine 10/05/2023 12:35 PM PETROLEUM ANALYST Screening for cervical cancer from Last 3 Months or Most Recently Relevant to Health Maintenance Results * Hepatitis C antibody Blood (10/05/2023 2:38 PM PETROLEUM ANALYST) Hep C Ab Nonreactive Nonreactive MAGALIE CAPPS [...] revised on 2019. Blood 10/05/2023 2:38 PM PETROLEUM ANALYST 10/05/2023 7:09 PM PETROLEUM ANALYST us Barbara Shine MD LAB MICROBIOLOGY - GENERA L ORDERABLES Edited Result - Final MAGALIE [address] [facility] [place] [address] * Pap with reflex to High Risk HPV and Genotyping (Cytology Component) (10/05/2023 12:35 PM PETROLEUM ANALYST) Thin prep (Pap test) 10/05/2023 12:35 PM PETROLEUM ANALYST 10/06/2023 2:11 AM PETROLEUM ANALYST Narrative PATHOLOGY [facility] - 10/11/2023 9:36 AM PETROLEUM ANALYST EPIC results best viewed via link to PDF [facility] [place] [address] Note to Patients: This report may contain [...] Gender: F : 2000 (Age: 23) Address: [address] [place] [address] [facility] #: [id number] Service: DEFAULT Location: Patient Type: [facility] SPECIMEN Taken: 10/05/2023 Received: 10/06/2023 Accessioned: 10/06/2023 [...] vaginosis - Acute inflammation present lwl/10/11/2023 09:36 MEDINA Romero MS(ASCP)CHERYL Report Electronically Reviewed and Signed Out By MEDINA Romero MS(ASCP)CHERYL 10/11/2023 09:36:46 Cervicovaginal Cytology (Pap Test) Disclaimer: The Pap test is a screening test used to detect cervical cancer and its precursors; it is not a diagnostic procedure. False negative and false positive results do occur. Pap test results should be interpreted in the context of pertinent clinical information and biopsy results as indicated. [facility] Clinical Laboratory Improvement Amendments (CLIA) mandate that cytologic and histologic results be correlated for laboratory manager quality improvement & improvement standards. FOR ALL HIGH-GRADE CASES [...] determined by the Surgical Pathology Department at [facility] as part of an ongoing quality assurance monitor final program and in compliance with federally mandated [...] determined by the Surgical Pathology Department of [facility]. It has not been cleared or approved by the U. S. Food and Drug Administration. Barbara Shine MD LAB CYTOLOGY ORDERABLES F inal Result [facility] from Last 3 Months or Most Recently Relevant to Health Maintenance Insurance [facility] CHOICE PLUS [facility] HMO/PPO Address: [address] [address] [place] [address] [facility] H[facility]/PPO Address: [address] [place] [id number] [employer] [facility] CHOICE PLUS [facility] HMO/PPO Address: [address] [address] [place] [address] [employer] Advance Directives For more information, please contact: [phone] * Full Code (Latest Code Status on File) Date Activated Date Inactivated Comments 04/17/2024 1:22 AM 04/20/2024 5:03 PM * Full Code Date Activated Date Inactivated Comments 04/15/2024 3:50 PM 04/17/2024 1:22 AM Full CPR in ca se of cardiopulmonary arrest Care Teams Front Desk Supervisor Relationship Specialty Start Date End Date Ananya Quesada NP [address] [facility] [address] [place] [address] PCP - General Family Medicine 01/09/23 Jluis Robles MD [address] [place] [id number] Otolaryngology 01/09/23
--- OUTSIDE RECORDS SUMMARY | 2024-11-03 01:43 | XMS_ITS | Clinical Summary ---
Author Organization [facility] Address [address] [place] [id number] Care Team Providers Care Is Manager Name Role Phone Unavailable Primary Care Provider Unavailabl e Social History Tobacco Use Types Packs/Day Years Used Date Smoking Tobacco: Never Assessed Comments Unknown Sex and Gender Information Value Date Recorded Sex Assigned at Not on file Legal Sex Female 7:05 PM CDT Gender Identity Not on file Sexual Orientation Not on file Plan of Treatment Health Maintenance Due Date Last Done Comments Cervical Cancer Screening Pa p Smear (Age 21 to 29) Every 3 Years 1999 Cervical Cancer Screening 1999 Annual Physical 2002 HPV Vaccines (1 - 3-dose series) 2014 Hepatitis C 2017 DTaP, Tdap and Td Vaccines ( 1 - Tdap) 2018 Hepatitis B Vaccines (1 of 3 - 19+ 3-dose series) 2018 COVID-19 Vaccine (2023-2 5 season) 2024 Influenza Adult (#1) 2024 Meningococcal B Vaccine Aged Out No l onger eligible based on patient's age to complete this topic Meningococcal Vaccine Aged Out No arabella rad eligible based on patient's age to complete this topic Pneumococcal Vaccine: Pediat rics (0 to 5 Years) and At-Risk Patients (6 to 64 Years) Aged Out No longer eligible b ased on patient's age to complete this topic RSV Immunizations Under 20 Months Aged Out No longer eligible based on patient's age to complete this topic
--- OUTSIDE RECORDS SUMMARY | 2024-11-03 01:43 | XMS_ITS | Data Portability ---
Author Organization [facility] [place] Address [address] [place] [address] Care Team Providers Care Packaging Technician Name Role Phone BROOKLYN CURTIS Primary Care Provider [phone] Assessment Encounter Date Assessment Date Assessment LastModified by Organization Details LastModified Time 05/04/2021 05/04/2021 The patient and I disscussed the various causes of abnormal uterine bleeding, including polyps, fibroids, hyperplasia, atypia, anovulation, etc. We reviewed the typical evaluation with labs, pelvic US and possible endometrial biopsy. Briefly discussed the options available for treatment (depending on the results of evaluation) such as hormonal treatment (OCPs, progestins), Mirena, endometrial ablation, and surgery. We spent more than 30 minutes face to face. [email or web address] Not available 05/04/2021 11:29:07 Plan of Treatment Reminders Order Date Submit Date Provider Last Modified By Organization Details Last Modified Time Details Appointments None recorded. Lab 17-hydroxyp rogesterone , QN, serum 2020 021 [facility] (Lab), [address] [place], [address], 1 00:53:39 dhea-sulfat e, serum 2020 021 [facility] (Lab), [address] [place], [address], 1 00:53:31 estradiol, serum 2020 021 [facility] (Lab), [address] [place], [address], 1 00:53:32 FSH (follicle-s timulating hormone), serum 2020 [facility] (Lab), [address], [place], [address], 1 00:53:36 HbA1c (hemoglobin A1c), blood 2020 021 [facility] (Lab), [address], [place], [address], 1 00:53:38 lh (luteinizin g hormone), serum 2020 [facility] (Lab), [address], [place], [address], 1 00:53:35 progesteron e, serum 2020 021 [facility] (Lab), [address], [place], [address], 1 00:53:33 prolactin, serum 2020 [facility] (Lab), [address] [place], [address], 1 00:53:34 shbg (sex hormone-bin ding globulin), serum 2020 021 [facility] (Lab), [address] [place], [address], 1 00:53:38 TSH, serum or plasma 2020 [facility] (Lab), [address] [place], [address], 1 00:53:37 testosteron e free/testos terone total, ratio, serum 2020 [facility] (Lab), [address], [place], [address], 00:53:40 beta-HCG, quantitativ e, serum or plasma 2020 [facility] (Lab), [address], [place], [address], 00:53:32 Referral None recorded. Procedures None recorded. Surgeries None recorded. Imaging US, pelvis 2020 [email or web address] [facility], [address], [address], [place], [address], 18:07:22 US, transvagina l 2020 021 [email or web address] [facility], [address], [address], [place], [address], 18:07:22 US, pelvis, complete 2020 021 [email or web address] 8 [facility] [address], [place], [address], 11:08:49 Medication Orders Loestrin Fe 09/30 (28-Day) 1 mg-20 mcg (21)/75 mg (7) tablet 2020 021 [email or web address] 1 [id number], [address], [place], [place], [id number], 3 11:59:56 Patient TargetsNo targets recorded. Patient InstructionsNo instructions recorded. Reason for Referral None Reported. Results Created Date Observation Date Name Description Value Unit Range Abnormal Flag Note LastModifiedBy Organization Detail LastModifiedTime 05/04/20 21 05/04/2021 DHEA SULFA TE DHEA-sulfate 468 ug/dL Femal e Range s Age(y ) Range (ug/d L) 10-15 34-28 0 15-20 65-36 8 20-25 148-4 07 25-35 99-34 0 35-45 61-33 7 45-55 35-25 6 55-65 19-20 5 65-75 9-246 > 75 12-15 4 Not Available [facility] (Lab) [address], [place], [address], 05/10/2021 00:53:30 05/04/20 21 05/04/2021 BHCG, QUANT ITATI VE B-HCG <0.2 mIU/m L This assay was perfo rmed using [employer] ratio n reage nts and test kits. Value s obtai chary with other assay metho ds or kits canno t be used inter [facility] . Refer ence Range s: Non-p regna nt, preme nopau anuradha women : 0.0-5 .3 mIU/m L Postm enopa usal women : 0.0-7 .0 mIU/m L Any l Pregn nia: Gesta sofia l Age bHCG Conc. - mIU/m L 3 Weeks 5.8 - 71.7 4 Weeks 9.5 - 750 5 Weeks 217-7 138 6 Weeks 158 - 31,79 5 7 Weeks 3,697 - 162,5 63 8 Weeks 32,06 5 - 149,5 71 9 Weeks 63,80 3 - 151,4 10 10 Weeks 46,50 9 - 186,9 77 12 Weeks 27,83 2 - 210,6 12 14 Weeks 13,95 0 - 62,53 0 15 Weeks 12,03 9 - 70,97 1 16 Weeks 9,040 - 56,45 1 17 Weeks 8,175 - 55,86 8 18 Weeks 8,099 - 58,17 6 Not Available [facility] (Lab) [address], [place], [address], 05/10/2021 00:53:31 05/04/20 21 05/04/2021 ESTRA DIOL estradiol 209.0 pg/mL This assay was perfo rmed using [employer] ratio n reage nts and test kits. Value s obtai chary with other assay metho ds or kits canno t be used inter [facility] . Femal e Estra diol Range s: Folli cular phase 12.4- 233 pg/mL Ovula tion phase 41.0- 398 pg/mL Lutea l phase 22.3- 341 pg/mL Postm enopa usal< 5-138 pg/mL Healt hy Pregn ant Women 1st Trime ster1 54-32 43 pg/mL 2nd Trime ster1 561-2 1280 pg/mL 3rd Trime ster8 525-> 46674 pg/mL Not Available [facility] (Lab) [address] [place], [address], 05/10/2021 00:53:32 05/04/20 21 05/04/2021 PROGE STERO NE progesterone 0.38 NG/mL This assay was perfo rmed using [employer] ratio n reage nts and test kits. Value s obtai chary with other assay metho ds or kits canno t be used inter [facility] . Femal e Proge stero ne Range s: Folli cular phase 0.06- 0.89 ng/mL Ovula tion phase 0.12- 12.00 ng/mL Lutea l phase 1.83- 23.90 ng/mL Postm enopa usal< 0.05- 0.13 ng/mL Healt hy Pregn ant Women 1st Trime ster1 1.0-4 4.30 2nd Trime ster2 5.40- 83.30 3rd Trime ster5 8.70- 214.0 0 Not Available [facility] (Lab) [address], [place], [address], 05/10/2021 00:53:33 05/04/20 21 05/04/2021 PROLA CTIN prolactin, total 22.20 NG/mL 4.79-2 3.30 This assay was perfo rmed using [employer] ratio n reage nts and test kits. Value s obtai chary with other assay metho ds or kits canno t be used inter [facility] . Not Available [facility] (Lab) [address] [place], [address], 05/10/2021 00:53:34 05/04/20 21 05/04/2021 LH (LUTE NIZIN G HORMO NE) LH 17.0 mIU/m L This assay was perfo rmed using [employer] n reage nts and test kits. Value s obtai chary with other assay metho ds or kits canno t be used inter [facility] . Femal es Mid-F ollic ular: 2.4-1 2.6 mIU/m L Mid-C ycle: 14.0- 95.6 mIU/m L Mid-L uteal : 1.0-1 1.4 mIU/m L Postm enopa use: 7.7-5 8.5 mIU/m L Not Available [facility] (Lab) [address] [place], [address], 05/10/2021 00:53:35 05/04/20 21 05/04/2021 FSH FSH 5.4 mIU/m L This assay was perfo rmed using [employer] n reage nts and test kits. Value s obtai chary with other assay metho ds or kits canno t be used inter [facility] . Femal es Folli cular : 3.5-1 2.5 mIU/m L Ovula tion: 4.7-2 1.5 mIU/m L Lutea l: 1.7-7 .7 mIU/m L Postm enopa use: 25.8- 134.8 mIU/m L Not Available [facility] (Lab) [address], [place], [address], 05/10/2021 00:53:36 05/04/20 21 05/04/2021 TSH, REFLE X FREE T4 TSH 0.71 uIU/m L 0.30-5 .33 Not Available [facility] (Lab) [address] [place], [address], 05/10/2021 00:53:37 05/04/20 21 05/04/2021 HUMAN SEX HORMO NE TONY NG GLOBU ELISEO sex hormone binding globulin 39.1 nmole s/L 18.2-1 35.5 Not Available [facility] (Lab) [address] [place], [address], 05/10/2021 00:53:37 05/04/20 21 05/04/2021 HEMOG LOBIN A1C hemoglobin A1C 4.9 % 0-5.6 The Ameri can [employer]abe carlos [employer] iatio n recom mends that a prima ry goal of thera py shoul d be a HBA1C of < 7% and that physi cians shoul d reeva luate the treat ment regim en in patie nts with HBA1C value s consi stent ly > 8%. <5.7% Any l 5.7 - 6.4% Incre ased risk for diabe carlos >=6.5 % Diagn ostic of diabe carlos <7.0% Goal of thera py >8.0% Actio n sugge sted Not Available [facility] (Lab) [address] [place], [address], 05/10/2021 00:53:38 05/04/20 21 05/04/2021 17-OH PROGE STERO NE 17-hydroxypr ogesterone, lc/MS/MS 44 NG/dL Adult Femal e Refer ence Range s for 17-Hy droxy proge stero ne: Pre-M enopa usal Mid Folli cular : 23-10 2 ng/dL Pre-M enopa usal Surge : 67-34 9 ng/dL Pre-M enopa usal Mid Lutea l: 139-4 31 ng/dL Postm enopa usal Phase : < or = 45 ng/dL Pregn nia: First Trime ster: 78-45 7 ng/dL Secon d Trime ster: 90-35 7 ng/dL Third Trime ster: 144-5 78 ng/dL This test was devel oped and its juan tical perfo rmanc e madie cteri stics have been deter mined by [facility] . It has not been clear ed or appro alina by FDA. This assay has been valid ated pursu ant to the CLIA regul ation s and is used for clini grzegorz purpo ses. Perfo rming Organ izati on [facility] diaz: Site ID: [id number] Name: [facility]/Rah freedman C-S bethany lorenz , Addre ss: [id number] [place] [address] Dire tor: Beth rapp MD,Ph D,SAM Not Available [facility] (Lab) [address] [place], [address], 05/10/2021 00:53:39 05/04/20 21 05/04/2021 TESTO STERO NE, FREE( DIALY SIS) AND TOTAL (LC/M S/MS) testosterone , total 36 NG/dL 2-45 For addit ional infor kunal scales e refer to http: //[facility] raúl diaz.que stdia gnost ics.c om/fa q/Tot al Testo stero neLCM SMS (This link is being provi ded for infor wilfredo nal/e ducat ional purpo ses only. ) This test was devel oped and its juan tical perfo rmanc e madie cteri stics have been deter mined by [employer]stic [employer]. It has not been clear ed or appro laina by the FDA. This assay has been valid ated pursu ant to the CLIA regul ation s and is used for clini grzegorz purpo ses. Not Available [facility] (Lab) [address], [place], [address], 05/10/2021 00:53:40 05/04/2005/04/2021 TESTO STERO NE, FREE( DIALY SIS) AND TOTAL (LC/M S/MS) testosterone , free 3.7 pg/mL 0.1-6. 4 This test was devel oped and its juan tical perfo rmanc e madie cteri stics have been deter mined by [employer]. It has not been clear ed or appro laina by the FDA. This assay has been valid ated pursu ant to the CLIA regul ation s and is used for clini grzegorz purpo ses. Perfo rming Organ izati on Infor matio n: Site ID: [id number] Name: [facility]-Rah jasmina [place] cia Addre ss: [address] [place] [address] Direc tor: Jennifer barrow M.D. Not Available [facility] (Lab) [address], [place], [address], 05/10/2021 00:53:40 05/12/20 21 05/12/2021 IMAGE GUIDE D PAP, REFLE X HPV IF ASCUS ONLY image guided Pap, reflex HPV ASCUS only SEE RESULT S BELOW abnormal CASE REPOR T: Cytol ogy Gynec ologi grzegorz Repor t Case: [id number] Autho lizandro francisco Provi toby: Soo Pillai, FRED Colle cted: 05/12 1313 Order ing Locat ion: [place] [facility] Recei laina: 05/13 0025 First Scree n: Arben Neal , [place] Patho logis t: Maria Isabel Woods MD Speci men: Scree angel Pap - Image d, Cervi x STATE MENT OF ADEQU ACY: Satis facto ry for evalu ation Trans forma tion zone compo nent prese nt FINAL DIAGN OSIS: Epith elial Cell Abnor malit y, Squam ous Cell: Low Grade Squam ous Intra epith elial Lesio n (LSIL ) Shift in milena sugge stive of bacte rial vagin osis is prese nt. Emil ontiveros by Maria Isabel Woods MD on 021 at 10:26 AM ----- ----- ----- ----- ----- ----- ----- ----- ----- ----- ----- ----- ----- ----- ----- ----- ----- ---- COMME NT: Note: This speci men was revie wed by a Cytot echno logis t and/o r Patho logis t (as indic ated in this repor t) after evalu ation using the Thinp rep Imagi ng Syste m. CLINI GRZEGORZ INFOR MATIO N: Menst rual Statu s: LMP (if appli cable ): 2020 Clini grzegorz Histo ry/Pr eviou s Pap: Type of Neopl suzanne (if appli cable ): Signi fican t Clini grzegorz Findi ngs: Other Histo ry: Hormo ford (if appli cable ): SUGGE STED FOLLO W-UP: Follo w up as warra nted, based on curre nt guide lines and indiv idual patie nt consi derat ions. Not Available [facility] (Lab) [address], [place], [address], 05/19/2021 11:29:01 05/07/20 21 05/07/2021 US, pelvi s No observ ation record ed. [facility] [address], [place], [address], 05/07/2021 17:08:02 05/07/20 21 05/07/2021 US, trans vagin al No observ ation record ed. [facility] [address], [place], [address], 05/07/2021 17:08:11 05/07/20 21 05/07/2021 US, pelvi s No observ ation record ed. [facility] Mensah [address], [place], [address], 05/10/2021 16:19:37 Result Notes None recorded. Procedures Surgical History Date Name Laterality Status Provider Name and Address Organization Details Recorded Time 1 Date of Last Pap Smear completed Nallely Morris [facility] 08/13/2021 11:04:13 9 hernia repair completed Nallely Morris [facility] 05/04/2021 11:08:11 5 procedure on tonsils completed Nallely [facility] 05/04/2021 11:07:58 Imaging Results Imaging Date Name Status LastModified by Organization Details LastModified Time 05/07/2021 US, pelvis completed [facility] [address], [place], [address], 05/07/2021 17:08:02 05/07/2021 [facility] [address], [place], [address], 05/07/2021 17:08:11 05/07/2021 US, pelvis completed THUY Makenna [address], [place], [address], 05/10/2021 16:19:37 Procedure Notes None recorded. Medical Equipment None Reported. Allergies No known drug allergies Medications Name Sig Start Date Stop Date Status Note LastModified by Organization Details LastModified Time triamcinolo ne acetonide 0.5 % topical cream APPLY TO THE AFFECTED AREA(S) ON THE SKIN TWICE DAILY active Not Available Not Available No t Available ofloxacin 0.3 % eye drops PLACE 1-2 DROPS IN BOTH EYES EVERY 2-4 HOURS X2DAYS, THEN 4XDAILY X5DAYS active Not Available Not Available No t Available fluconazole 150 mg tablet 12/08 completed Not Available Not Available Not Available hydrocodone 5 mg-acetamin ophen 325 mg tablet TAKE 1 TABLET BY MOUTH 1 HOUR BEFORE PROCEDURE , THEN EVERY 6 HOURS NEEDED active Not Available Not Available No t Available metronidazo le 0.75 % (37.5 mg/5 gram) vaginal gel 12/08 completed Not Available Not Available Not Available ondansetron HCl 4 mg tablet TAKE 1 TABLET BY MOUTH 1 HOUR BEFORE SURGERY active Not Available Not Available No t Available prednisone 20 mg tablet TAKE 2 TABLETS BY MOUTH ONCE DAILY WITH FOOD FOR 4 DAYS-DO NOT TAKE WITH ASPIRIN/O THER NSAIDS active Not Available Not Available No t Available sulfamethox azole 800 mg-trimetho prim 160 mg tablet active Not Available Not Available Not Available spironolact one 25 mg tablet active Not Available Not Available Not Available ketorolac 10 mg tablet active Not Available Not Available Not Available oxycodone-a cetaminophe n 5 mg-325 mg tablet TAKE 1 TABLET BY MOUTH EVERY 4 TO 6 HOURS NEEDED FOR SEVERE PAIN AFTER SURGERY active Not Available Not Available No t Available amoxicillin 875 mg tablet TAKE 1 TABLET BY MOUTH EVERY 12 HOURS FOR 10 DAYS 12/08 completed Not Available Not Available Not Available norethindro ne (contracept tita) 0.35 mg tablet 12/08 completed Not Available Not Available Not Available ketoconazol e 2 % topical cream APPLY TO THE AFFECTED AREA(S) ON THE SKIN TWICE DAILY active Not Available Not Available No t Available ondansetron 4 mg disintegrat ing tablet active Not Available Not Available N ot Available cefdinir 300 mg capsule TAKE 1 CAPSULE BY MOUTH EVERY 12 HOURS active Not Available Not Available No t Available ipratropium bromide 21 mcg (0.03 %) nasal spray SPRAY 2 SPRAYS INTO EACH NOSTRIL TWICE A DAY FOR 30 DAYS active Not Available Not Available No t Available diazepam 5 mg tablet active Not Available Not Available No t Available amoxicillin 875 mg-potassiu m clavulanate 125 mg tablet TAKE 1 TABLET BY MOUTH EVERY 12 HOURS FOR 10 DAYS 12/08 completed Not Available Not Available Not Available Lo Loestrin Fe 1 mg-10 mcg (24)/10 mcg (2) tablet active Not Available Not Available Not Available Xulane 150 mcg-35 mcg/24 hr transdermal patch active Not Available Not Available Not Available Aurovela Fe 1-20 (28) 1 mg-20 mcg (21)/75 mg (7) tablet TAKE 1 TABLET BY MOUTH EVERY DAY 12/08 completed Not Available Not Available Not Available ID NOW COVID-19 Test Kit TEST DIRECTED 05/03 completed Not Available Not Available Not Available Vitals Date Recorded Body height Body mass index (BMI) Body weight Systolic blood pressure Diastolic blood pressure Provider Name and Address Organization Details Last Updated DateTime 05/04/2021 170.18 cm 33 kg/m2 81984.99 g 122 mm[Hg] 84 mm[Hg] Nallely Morris [facility] 11:12:18 Date Recorded Body height Body mass index (BMI) Body weight Systolic blood pressure Diastolic blood pressure Provider Name and Address Organization Details Last Updated DateTime 05/12/2021 170.18 cm 33.7 kg/m2 80435.36 g 132 mm[Hg] 79 mm[Hg] Nallely Morris [facility] 12:01:40 Social History Question Answer Notes LastModified by Organizat ion Details LastModified Time Tobacco Smoking Status Never Smoker Nallely Morris null, [facility] 05/04/2021 11:07:49 What Is Your Level Of Alcohol Consumption? Occasional [email or web address] Information not available 05/04/2021 Has Tobacco Cessation Counseling Been Provided? No [email or web address] Information not available 05/04/2021 Do You Or Have You Ever Used Any Other Forms Of Tobacco Or Nicotine? No [email or web address] Information not available 05/04/2021 Sex: Unknown Functional Status None recorded. Mental Status None recorded. Family History Relationship Description Onset Age of this Age Resolved Age Notes LastModified by Organization Details LastModified Time Father Hypertensive disorder Not available 2020 11:07:14 Mother Disorder of thyroid gland [email or web address] Not available 2020 11:07:41 Sister Disorder of thyroid gland [email or web address] Not available 2020 11:07:41 Medical History Condition Response Allergies (Food, seasonal, environmental ) N Other N Drug/Latex Allergies/Reactions N Blood Transfusion N Breast Cancer N Dermatologic Disorders N Lung Disease N Defects or Inherited Disease N Breast Problem N Gestational Diabetes N Hematologic disorders N Anesthesia Complications N History of STI N Deep Vein Thrombosis N Polycystic ovary syndrome N Anxiety Disorder N Autoimmune disease N Arthritis N Polyps N Infertility N Acid Reflux (GERD) N History of abnormal pap Y Cancer N Varicosities N Stroke N Neurologic/Epilepsy N Endometriosis N High Cholesterol N Fibromyalgia N Headaches N Kidney Disease N Heart Problems N Thyroid Problems N Kidney or Bladder Problems N GI Problems N Eating Disorder N Anemia N Art (IVF or FET) N Psychiatric Illness N Ovarian Cancer N Diabetes N Pulmonary (TB, Asthma) N Hepatitis/Liver Disease N No Past Medical History N Eczema N Urinary Tract Infection N Abuse/Domestic Violence N Asthma N Trauma/Violence N Depression/ depression N Heart Disease N Pre-Eclampsia N Hypertension N Osteoporosis N Thrombophilias N Gynecological History Statement/Question Response Abnormal Pap Y Flow Moderate Date of LMP 05/01/2021 STIs/STDs N HPV Vaccine N 14 Current Control Method None Sexually Active? Y Menses Monthly N Date of Last Pap Smear 05/12/2021 Sexual Problems? N LMP Approximate Obstetrics History GPAL:G 0 P 0 0 0 0 Type Value Living 0 Total 0 Past Encounters Encounter ID Performer Location Encounter Start Date Encounter Closed Date Diagnosis/Indication Diagnosis SNOMED-CT Code Diagnosis ICD10 Code [id number] [address] [address] 05/04/2021 11:03:30 05/05/2021 14:12:48 Abnormal uterine bleeding [id number] 9100 N93.9 Labs, u/s, return to discuss all results and determine plan. Pt has not had a pap and does not want one today. Will do wwe and follow up at next visit. [id number] [facility] [address],[place] [address] 05/07/2021 12:18:51 05/07/2021 14:55:19 Abnormal uterine bleeding [id number] 9100 N93.9 [id number] [facility] [address],[place] [address] 05/12/2021 11:52:25 05/12/2021 16:20:56 Gynecologic examination [id number] Z01.419 Z11.3 Z11.8 Take Calcium with Vitamin D 1200mg daily if not receiving in daily diet. It is strongly advised to have an annual flu shot and up can obtain at most pharmacies . If you have not had a TDap shot in the last 10 years you should obtain one as well. Discussed with patient & provided with informatio n regarding Gardisil vaccine to prevent the 4 strains for HPV that cause cervical cancer if under age 26. Encourage safe sexual practices, to use condoms and limit partners if not already in a monogamous relationsh ip. Do monthly self breast exams. Have mammogram yearly or every other year depending on family history. BRCA testing is now available for patients with strong genetic history of female cancer. If interested contact the office. Engage in daily exercise of low impact aerobic exercise 45-60 minutes 4-5 times weekly. Avoid tobacco and illicit drugs as well as using moderation with alcohol intake less than 1-2 8 oz beverages daily. This lifestyle behavior pattern will lead to less health conditions and longer life span. If BMI greater than 25 weight watchers or dietary consult advised. Patient received above instructio ns, and questions have been answered. If you have any questions please call or respond to this email. Patient was made aware of the patient portal and may obtain a paper copy of today's plan if desired. Abnormal u terine bleeding [id number] 9100 N93.9 Reviewed lab and u/s reports with patient. Also discussed recommenda tions with CF and SP. Will plan to recheck dheas and testostero ne in 3 months. Discussed contracept ion options with patient and she would like to start ocp for contracept ion and cycle regulation .She is aware of the risks and benefits. She does not have any medical condition that is contraindi cated with the use of estrogen containing control. Pt will start her pills on the first Monday following the start of her period. She is aware it is not effective for control the first month. She is also aware of the importance of taking at the same time every day. Encouraged use of condoms as the pill does not protect against STD's. Will return in 3 months for med check. Consent was read and signed. Pt verbalized understand ing. Health Concerns Section Related Observation LastModified by Organization Detai ls LastModified Time None Recorded Concern Status LastModified by Organization Details LastModified Time None Recorded Advance Directives Directive None Recorded Payers Encounter Date Sequence Insurance Name Policy Number Policy Parsons Covered Member ID Parsons Member ID Guarantor Name 05/04/2021 1 [facility] Terry Cordon [id number] Hillary Cordon 05/07/2021 1 [facility] Terry Rodriguezg [id number] Hillary Cordon 05/12/2021 1 [facility] Neris [id number] Hillary Cordon Notes Date Note Type Note Provider Name and Address Organization Details Recorded Time 05/04/2021 text/html Beer - Abnormal BleedingReported bypatient.Notes:Pt had normal monthly cycles up until 4 months ago. Cycles every 2-3 weeks x 2 months and every 2 weeks for the last 2 months. Cycles last 5-7 days. 1st day heavy.Currently spotting. No cramping. No history of contraception. Pt is sexually active. Uses condoms sometimes. No recent test. Took one 2 months ago and it was negative. Over the last few years she has gained 30lbs. Increased facial hair. Acne on her back. The increased hair 6 months and acne 8 months.No medical history. [facility] 05/05/2021 10:06:05 05/12/2021 text/html Annual GYNReport ed bypatient.Menstrual cycle:Intervals less than 21 days;Irregular cycle intervals Urinary symptoms:No hematuria; No incontinence Vulva:No genital lesion Vagina:Normal vaginal discharge Breast:No breast pain; No breast lump; No nipple discharge Sexual complaints:No sexual complaints; No pain during intercourse; Normal libido Menopausal Symptoms:No menopausal symptoms; Normal vaginal lubrication Psychological symptoms:No depression; No anxiety; No PMDD [facility] 05/12/2021 13:06:10 OBGyn Episode No OBEpisode recorded.
--- OUTSIDE RECORDS SUMMARY | 2024-11-03 01:43 | XMS_ITS | Referral Summary ---
Author Organization [facility] Address [address] [place] [address] Care Team Providers Care Stna Name Role Phone Unavailable Primary Care Provider Unavailabl e Source Comments [facility],non-owned Affiliates and Associated Physician Practices is amultiple site organization consisting of ambulatory clinics and hospital sitesin [place], [place], [place] and [place]. This disclosure is being madepursuant to the Care Everywhere program and may not contain all information available regarding this patient. Last updated 18.[facility] Allergies Active Allergy Reactions Criticality Noted Date Comments Cat's Claw 02/10/2011 Grassleaf Sweetflag Rhizome 02/11/20 11 Trichophyton Mentagrophytes 02/11/20 11 Peanut Oil Urticaria 04/08/2010 Medications * Be aware that medications may not be up to date on this document. Alwaysverify current medications with the patient. Medication Sig Dispensed Refills Start Date End Date Status adapalene-benzoyl peroxide (EPIDUO) 0.1-2.5 % gel Apply to affected area at bedtime 45 g 2 12/03/2015 Active clindamycin (CLINDAGEL) 1 % gel Apply to affected area 2 times daily 60 g 2 12/03/2015 Active triamcinolone acetonide (KENALOG) 0.1 % cream DAMON EXT AA BID FOR 14 DAYS 1 02/16/2017 Active Active Problems Problem Noted Date Diagnosed Date Popliteal cyst 07/29/2014 Right knee pain 07/29/2014 Allergic rhinitis 03/07/2012 Acute serous otitis media 03/07/2012 Immunizations Name Administration Dates Next Due DTaP VACCINE IM (6wk-6yrs) 03/22/2005,,02/19/2000,11/12,1999 HEP A PEDS 2 DOSE 10/30/2012,04/08/2010 HEP B VACCINE, PED/ADOL 07/25/2000,02/19/2000, HIB BOOSTER 12/28/2000, 0,1999,09/13 Human Papilloma Virus Pipe valent Vaccine 05/21/2013,01/01/2013,10/30/2012 MENINGOCOCCAL CONJUGATE (MCV4P) 04/08/2016,10/30 MMR 03/22/2005,07/25/2000 PNEUMOCOCCAL CONJ, PEDS 12/28/2000,07/25/2000, POLIO IPV 03/22/2005, 1,1999,09/13 PPD 03/22/2005,07/25/2000 TDAP (7yrs+) 04/08/2010 VARICELLA 10/30/2000 Social History Tobacco Use Types Packs/Day [...] PM CDT Body Mass Index - - Plan of Treatment Not on file Goals Goal Patient Goal Type Associated Problems Recent Progress Patient-Stated? Author Use safety retraint in car Lifestyle On track( 017 11:12 AM CDT) No Monse Waller
--- OUTSIDE RECORDS SUMMARY | 2024-11-03 01:43 | XMS_ITS | Clinical Summary ---
Author Organization [facility] Address [address] [place] [address] Care Team Providers Care Emergency Management System Director Name Role Phone Unavailable Primary Care Provider Unavailabl e Source Comments [facility],non-owned Affiliates and Associated Physician Practices is amultiple site organization consisting of ambulatory clinics and hospital sitesin [place], [place], [place] and [place]. This disclosure is being madepursuant to the Care Everywhere program and may not contain all information available regarding this patient. Last updated 18.[facility] Allergies Active Allergy Reactions Criticality Noted Date [...] Mass Index - - Plan of Treatment Health Maintenance Due Date Last Done Comments PAP SMEAR 1999 HIV SCREENING 2014 CHLAMYDIA/GONORRHEA SCREENING 2015 HEPATITIS C SCREENING 07/05/2017 DTAP/TDAP/TD VACCINES (7 - Td or Tdap) 04/08/2020 04/08/2010, 03/22/2005, 12/28/2000, Additional history exists COVID-19 VACCINE ( - 2023- season) 2024 INFLUENZA VACCINE (#1) 2024 DEPRESSION SCREENING 09/11/2024 ZOSTER VACCINE (1 of 2) 2049 HEPATITIS B VACCINE Completed 07/25/2000, 02/19/2000, 1999 HIB VACCINE Completed 12/28/2000, 02/09, 1999, Additional history exists PNEUMOCOCCAL VACCINE Completed 12/28/2000, 07/25/2000, 02/19/2000 HPV VACCINE Completed 05/21/2013, 12/11, 10/30/2012 MENINGOCOCCAL VACCINE Completed 04/08/2016, 013 MENINGOCOCCAL (Group B) VACCINE Aged Out No longer eligible based on patient's age to complete this topic Goals Goal Patient Goal Type Associated Problems Recent Progress Patient-Stated? Author Use safety retraint in car Lifestyle On track( 017 11:12 AM CDT) Monse Nuñez
[2024-11-03 01:56] VITALS: BP 108/73; PULSE 95; RESP 15; TEMP 36.6; O2SAT 99
[2024-11-03 02:06] LABS: Basophils Percent Auto 0.4 % (0.2-1.2); Eosinophils Percent Auto 0.2 % (0-4.4); Hematocrit 40.7 % (37.0-47.0); Hemoglobin 13.3 g/dL (12.0-15.0); Immature Granulocyte Absolute 0.03 K/mm3 (0.00-0.031); Immature Granulocyte Percent A 0.3 % (0-0.5); Lymphocytes Absolute Auto 0.74 K/mm3 (0.9-3.2); Lymphocytes Percent Auto 7.5 % (18.3-44.2); Mean Corpuscular HGB Conc 32.7 g/dl (32-36); Mean Corpuscular Hemoglobin 26.4 pg (26-34); Mean Corpuscular Volume 80.9 fl (80-100); Mean Platelet Volume 11.8 fl (7.4-10.4); Monocytes Absolute Auto 0.4 K/mm3 (0.1-0.6); Monocytes Percent Auto 4.2 % (2.6-8.5); Neutrophils Absolute Auto 8.6 K/mm3 (1.3-6.7); Neutrophils Percent Auto 87.4 % (45.5-73.1); Platelet Count Result 297 k/mm3 (150-375); Red Blood Count 5.03 M/mm3 (4.2-5.4); Red Cell Distribution Width 14.3 % (11.5-14.5); White Blood Count 9.9 K/mm3 (4.5-10.0)
[2024-11-03 02:23] LABS: Alanine Aminotransferase 41 U/L (6-35); Albumin Level 4.3 g/dL (3.5-5.1); Alkaline Phosphatase 108 U/L (38-126); Anion Gap 14 mmol/L (4-12); Aspartate Amino Transferase 43 U/L (14-36); Bilirubin,Total 0.7 mg/dL (0.2-1.3); Blood Urea Nitrogen 8 mg/dL (7-17); Calcium 8.8 mg/dL (8.4-10.2); Carbon Dioxide 21 mmol/L (22-30); Chloride 102 mmol/L (98-107); Estimated CRCL calculation 129 ml/min; Estimated Glomerular Filt Rate > 60; Glucose 112 mg/dL (65-110); Lipase 52 U/L (23-300); Potassium 3.3 mmol/L (3.4-5.0); Sodium 137 mmol/L (137-145)
[2024-11-03 02:42] VITALS: O2SAT 99
[2024-11-03 02:48] LABS: Add Urine Microscopic? YES; Appearance Urine Clear (Clear); Bacteria Urine None Seen /hpf; Bilirubin Urine Negative (Negative); Blood Urine Negative (Negative); Color Urine Yellow (Yellow); Glucose Urine UA Negative (Negative); Ketones Urine Negative (Negative); Leukocyte Esterase Ur 1+ LEU/UL (Negative); Need Manual Microscopic Reviewed; Nitrate Urine Negative (Negative); Protein Urine Trace mg/dL (Negative); RBC Urine 0-2 /hpf (0-2); Specific Grav Ur 1.017 (1.001-1.035); Squamous Epithelial Cell Urine Few /hpf (Few); Urobilinogen Urine 0.2 mg/dL (<2.0); pH Urine 5.5 (5.0-9.0)
--- OUTSIDE RECORDS SUMMARY | 2024-11-03 02:50 | XMS_ITS | Referral Summary ---
Author Organization [facility] Address [address] [place] [address] Care Team Providers Care General Manager Food Name Role Phone Unavailable Primary Care Provider Unavailabl e Source Comments [facility],non-owned Affiliates and Associated Physician Practices is amultiple site organization consisting of ambulatory clinics and hospital sitesin [place], [place], [place] and [place]. This disclosure is being madepursuant to the Care Everywhere program and may not contain all information available regarding this patient. Last updated 18.[facility] Allergies Active Allergy Reactions Criticality Noted [...]
--- OUTSIDE RECORDS SUMMARY | 2024-11-03 02:50 | XMS_ITS | Referral Summary ---
Author Organization [facility] Address [address] [place] [address] Phone Care Team Providers Care Event Promoter Name Role Phone Ananya Quesada NP Primary Care Provider [phone] Jluis Robles MD Unavailable [phone] Allergies Active Allergy Reactions Criticality Noted Date Comments [place] Rash Medium 02/10/2011 Cat's Claw Eye irritation Low 02/10/2011 Peanut Oil Urticaria Medium 04/08/2010 Trichophyton Mentagrophytes Allergenic Extract Rash Medium 02/10/2011 Medications cetirizine (ZyrTEC) 10 mg tablet Take 1 tablet (10 mg total) by mouth daily Active vit 78-[id number]-ayoqt-dha 27mg iron- 800 mcg-250 mg capsule Take [...] cell count. Consulted Dr. Raj Ugarte with [facility] who advised CT scan with IV [...] OTC allergy medications May benefit from seeing hand deicer element winder Assessment & Plan (01/09/2023 1:59 PM CDT): Follows with ENT, recently had turbinate resection procedure. Also being worked up for ARNIE. Has seen an hand deicer element winder in the past and had allergy shots [...] than three times a week 04/15/2024 Attends [employer] Not on file 04/15 Active Member [...] staff should administer the PHQ-9) 0 04/15/2024 [facility] - Occupational Stress Questionnaire Answer Date Recorded [...] things needed for daily living? No 04/15/2024 [place] Depression Scale Answer Date Recorded [place] Depression Scale Total 0 05/31/2024 The thought [...] any time in the past 12 m [facility], were you homeless or living in a intermediate (including now)? No 04/15/2024 Personal Safety Answer Date Recorded Have you ever been in or are you currently in a harmful physical or emotional relationship or is someone making you feel afraid or unsafe? Denies 04/15/2024 Comments No Sex and Gender Information Value Date Recorded Sex Assigned at Not on file Legal Sex Female 6:49 AM ANTICHECKING IRON WORKER Gender Identity Not on file Sexual Orientation [...] HEPATITIS C ANTIBODY Routine 10/05/2023 2:38 PM ANTICHECKING IRON WORKER Encounter for supervision of normal in first trimester, unspecified PAP WITH REFLEX TO HIGH RISK HPV Routine 10/05/2023 12:35 PM ANTICHECKING IRON WORKER Screening for cervical cancer from Last 3 Months or Most Recently Relevant to Health Maintenance Results * Hepatitis C antibody Blood (10/05/2023 2:38 PM ANTICHECKING IRON WORKER) Hep C Ab Nonreactive Nonreactive MAGALIE CAPPS [...] revised on 2019. Blood 10/05/2023 2:38 PM ANTICHECKING IRON WORKER 10/05/2023 7:09 PM ANTICHECKING IRON WORKER Barbara Shine MD LAB MICROBIOLOGY - GENERA L ORDERABLES Edited Result - Final MAGALIE [address] [facility] Department [place] [address] * Pap with reflex to High Risk HPV and Genotyping (Cytology Component) (10/05/2023 12:35 PM ANTICHECKING IRON WORKER) Thin prep (Pap test) 10/05/2023 12:35 PM ANTICHECKING IRON WORKER 10/06/2023 2:11 AM ANTICHECKING IRON WORKER Narrative PATHOLOGY [facility] - 10/11/2023 9:36 AM ANTICHECKING IRON WORKER EPIC results best viewed via link to PDF [facility] [place] [address] Note to Patients: This report may contain [...] Gender: F : 2000 (Age: 23) Address: [address] [place] [address] Hospital #: [id number] Service: DEFAULT Location: Patient Type: [facility] SPECIMEN Taken: 10/05/2023 Received: 10/06/2023 Accessioned: [...] clinical information and biopsy results as indicated. [facility] Clinical Laboratory Improvement Amendments (CLIA) mandate that cytologic and histologic results be correlated for laboratory quality assurance associate & improvement standards. FOR ALL HIGH-GRADE CASES [...] determined by the Surgical Pathology Department at [facility] as part of an ongoing water quality analyst program and in compliance with federally mandated [...] determined by the Surgical Pathology Department of [facility]. It has not been cleared or approved by the U. S. Food and Drug Administration. Barbara Shine MD LAB CYTOLOGY ORDERABLES F inal Result [facility] from Last 3 Months or Most Recently Relevant to Health Maintenance Insurance IDPA [facility] CHOICE PLUS IDPA Advance Directives For more information, please contact: [phone] * Full Code (Latest Code Status on File) Date Activated Date Inactivated Comments 04/17/2024 1:22 AM 04/20/2024 5:03 PM * Full Code Date Activated Date Inactivated Comments 04/15/2024 3:50 PM 04/17/2024 1:22 AM Full CPR in ca se of cardiopulmonary arrest Care Teams Event Promoter Relationship Specialty Start Date End Date Ananya Quesada NP [address] [facility] [address] [place] [address] PCP - General Family Medicine 01/09/23 Jluis Robles MD [address] [place] [id number] Otolaryngology 01/09/23
--- OUTSIDE RECORDS SUMMARY | 2024-11-03 02:50 | XMS_ITS | Clinical Summary ---
Author Organization [facility] Address [address] [place] [address] Care Team Providers Care Senior Cyber Security Analyst Name Role Phone Unavailable Primary Care Provider [...]
--- OUTSIDE RECORDS SUMMARY | 2024-11-03 02:50 | XMS_ITS | Clinical Summary ---
Author Organization [facility] Address [address] [place] [address] Phone Care Team Providers Care Coal Hauler Name Role Phone Ananya Quesada NP Primary Care Provider [phone] Jluis Robles MD Unavailable [phone] Allergies Active Allergy Reactions Criticality Noted Date Comments [employer] Rash Medium 02/10/2011 Cat's Claw Eye irritation Low 02/10/2011 Peanut Oil Urticaria Medium 04/08/2010 Trichophyton Mentagrophytes Allergenic Extract Rash Medium 02/10/2011 Medications cetirizine (ZyrTEC) 10 mg tablet Take 1 tablet (10 mg total) by mouth daily Active vit 66-rwzx-kmgem-dha 27mg iron- 800 mcg-250 mg capsule Take [...] cell count. Consulted Dr. Raj Ugarte with [facility] who advised CT scan with IV [...] OTC allergy medications May benefit from seeing director sanitation bureau Assessment & Plan (01/09/2023 1:59 PM CDT): Follows with ENT, recently had turbinate resection procedure. Also being worked up for ARNIE. Has seen an director sanitation bureau in the past and had allergy shots [...] than three times a week 04/15/2024 Attends [employer] Services Not on file 04/15 Active Member [...] staff should administer the PHQ-9) 0 04/15/2024 [facility] of Occupat ional [facility] - Occupational Stress Questionnaire Answer Date [...] things needed for daily living? No 04/15/2024 [place] Depression Scale Answer Date Recorded [place] Depression Scale Total 0 05/31/2024 The thought [...] any time in the past 12 m [facility], were you homeless or living in a halfway (including now)? No 04/15/2024 Personal Safety Answer Date Recorded Have you ever been in or are you currently in a harmful physical or emotional relationship or is someone making you feel afraid or unsafe? Denies 04/15/2024 Comments No Sex and Gender Information Value Date Recorded Sex Assigned at Not on file Legal Sex Female 6:49 AM DIRECTOR MOBILE MEDIA SOLUTIONS Gender Identity Not on file Sexual Orientation [...] Pickens MD Complications:Pre eclampsia, Post Hemorrhage Delivery Location:[facility] ([facility]) Last Filed Vital Signs Vital [...] HEPATITIS C ANTIBODY Routine 10/05/2023 2:38 PM DIRECTOR MOBILE MEDIA SOLUTIONS Encounter for supervision of normal in first trimester, unspecified PAP WITH REFLEX TO HIGH RISK HPV Routine 10/05/2023 12:35 PM DIRECTOR MOBILE MEDIA SOLUTIONS Screening for cervical cancer from Last 3 Months or Most Recently Relevant to Health Maintenance Results * Hepatitis C antibody Blood (10/05/2023 2:38 PM DIRECTOR MOBILE MEDIA SOLUTIONS) Hep C Ab Nonreactive Nonreactive MAGALIE CAPPS [...] revised on 2019. Blood 10/05/2023 2:38 PM DIRECTOR MOBILE MEDIA SOLUTIONS 10/05/2023 7:09 PM DIRECTOR MOBILE MEDIA SOLUTIONS us Barbara Shine MD LAB MICROBIOLOGY - GENERA L ORDERABLES Edited Result - Final MAGALIE [address] [facility] Department [place] [address] * Pap with reflex to High Risk HPV and Genotyping (Cytology Component) (10/05/2023 12:35 PM DIRECTOR MOBILE MEDIA SOLUTIONS) Thin prep (Pap test) 10/05/2023 12:35 PM DIRECTOR MOBILE MEDIA SOLUTIONS 10/06/2023 2:11 AM DIRECTOR MOBILE MEDIA SOLUTIONS Narrative PATHOLOGY [facility] - 10/11/2023 9:36 AM DIRECTOR MOBILE MEDIA SOLUTIONS EPIC results best viewed via link to PDF [facility] Laboratory [place] [address] Note to Patients: This report may contain [...] Gender: F : 2000 (Age: 23) Address: [address] [place] [address] [facility] #: [id number] Service: DEFAULT Location: Patient Type: [facility] SPECIMEN Taken: 10/05/2023 Received: 10/06/2023 Accessioned: [...] as indicated. [facility] Clinical Laboratory Improvement Amendments (CLIA) mandate that cytologic and histologic results be correlated for laboratory quality control microbiology supervisor & improvement standards. FOR ALL HIGH-GRADE CASES [...] determined by the Surgical Pathology Department at [facility] as part of an ongoing quality control director program and in compliance with federally mandated [...] determined by the Surgical Pathology Department of [facility]. It has not been cleared or approved by the U. S. Food and Drug Administration. Barbara Shine MD LAB CYTOLOGY ORDERABLES F inal Result [facility] from Last 3 Months or Most Recently Relevant to Health Maintenance Insurance [facility] CHOICE PLUS IDPA [facility] CHOICE PLUS IDPA Advance Directives For more information, please contact: [phone] * Full Code (Latest Code Status on File) Date Activated Date Inactivated Comments 04/17/2024 1:22 AM 04/20/2024 5:03 PM * Full Code Date Activated Date Inactivated Comments 04/15/2024 3:50 PM 04/17/2024 1:22 AM Full CPR in ca se of cardiopulmonary arrest Care Teams Coal Hauler Relationship Specialty Start Date End Date Ananya Quesada NP [address] [facility] [address] [place] [address] PCP - General Family Medicine 01/09/23 Jluis Robles MD [address] [place] [id number] Otolaryngology 01/09/23
--- OUTSIDE RECORDS SUMMARY | 2024-11-03 02:50 | XMS_ITS | Patient Health Summary ---
Author Organization [facility] Address [address] [place] [address] Care Team Providers Care Health Program Analyst Name Role Phone Unavailable Primary Care Provider Unavailabl e Note from [facility],non-owned Affiliates and Associated Physician Practices is amultiple site organization consisting of ambulatory clinics and hospital sitesin [place], [place], [place] and [place]. This disclosure is being madepursuant to the Care Everywhere program and may not contain all information available regarding this patient. Last updated 18.[facility] Allergies * Cat's Claw * Grassleaf Sweetflag [...] CDT 06/27/2017 Narrative Resulting Agency Comment [facility] [address] [id number] Leobardo Parmar DO LAB - MICROBIOL OGY ORDERABLES [facility] ACCOUNT BILL [address] [place] [address] * STREP A SCREEN - POINT OF CARE (AMB) (06/27/2017) Strep A Rapid POCT Negative Negative Strep A Internal Control Present Other ENTIRE THROAT (SURFACE REGION OF NECK) / Unknown 06/27/2017 Leobardo Parmar DO LAB - POINT OF CARE ORDERABLES * MRI LOWER EXT ANY JOINT NON CONTRAST RIGHT (08/04/2014 4:56 PM CELL ATTENDANT) Anatomical Region Laterality Modality Lower Extremity Magnetic Resonan ce 08/04/2014 6:04 PM CELL ATTENDANT Impressions 08/04/2014 6:22 PM CELL ATTENDANT 1. Popliteal cyst, with maximum dimensions of 5.7 x 2.3 x 2.3 cm. This contains a few fine internal septations. There is no evidence of leakage/rupture. 2. 1.4 x 0.6 cm ganglion cyst along the anterior aspect of the proximal tibiofibular joint. 3. Otherwise normal MRI of the knee. Narrative 08/04/2014 6:22 PM CELL ATTENDANT EXAM: MRI right knee without intravenous contrast [...] Class 0 [facility] Comment: Test Performed at: [employer] [address] [place] [address] CELSA MICHELLE MD Allergen Soybean 0.58(H) kU/L [...] kU/L [facility] Class 1 [facility] Allergen Cockroach Belarusian <0.35 kU/L [facility] Class 0 [facility] Allergen Dermatophagoides pteronyssinus <0.35 kU/L [facility] Class 0 [facility] Allergen C Herbarum <0.35 kU/L [facility] Class 0 [facility] Allergen Shrimp <0.35 kU/L [facility] Class 0 [facility] Allergen [place] 0.64(H) kU/L [facility] Class 1 [facility] IgE 71 <RH=282 kU/L [facility] 03/25/2009 4:07 PM CDT 03/25/2009 4:07 PM CDT Izabela Tovar MD LAB - CHEMISTRY [facility] Organization Address City/State/ZIP Co de Phone Number [facility] [phone] [place] [address]
--- OUTSIDE RECORDS SUMMARY | 2024-11-03 02:50 | XMS_ITS | Clinical Summary ---
Author Organization [facility] Address [address] [place] [address] Care Team Providers Care Director Of Philanthropy Name Role Phone Unavailable Primary Care Provider Unavailabl e Source Comments [facility],non-owned Affiliates and Associated Physician Practices is amultiple site organization consisting of ambulatory clinics and hospital sitesin [place], [place], [place] and [place]. This disclosure is being madepursuant to the Care Everywhere program and may not contain all information available regarding this patient. Last updated 18.[facility] Allergies Active Allergy Reactions Criticality [...]
[2024-11-03 02:55] VITALS: O2SAT 100
[2024-11-03 02:59] LABS: Pregnancy On Board Control Positive; Urine Pregnancy Test Negative
[2024-11-03] MEDS: SODIUM CHLORIDE 0.9% IV 1,000 ML 999 ML IV CONT (03:31)
[2024-11-03] MEDS: ONDANSETRON INJ 4 MG/2 ML VIAL IV PUSH (03:31)
[2024-11-03 03:33] VITALS: O2SAT 100
[2024-11-03 03:37] LABS: Influenza A QL RT-PCR Negative (Negative); Influenza B QL RT-PCR Negative (Negative); RSV RNA, RT-PCR Negative (Negative); SARS-CoV-2 RNA PCR Negative (Negative)
--- NOTE | 2024-11-03 03:42 | ED_ITS ---
HPI - General Adult General Chief complaint: Nausea/Vomiting/Diarrhea Stated complaint: n/v/d Time Seen by Provider: 11/03/24 02:34 History of Present Illness HPI narrative: Patient is a 24-year-old female who presents to the emergency department this evening complaining of nausea, vomiting and diarrhea for the past 48 hours. Patient states that her symptoms were pretty bad yesterday and today she woke up and she was feeling slightly better during the 1st half of the day, however, the diarrhea started up again. Patient took Imodium approximately 4 hours prior to arrival and states that although it did help with her diarrhea it caused her severe abdominal cramping. She denies any exposure to sick contacts as far as she is aware but states that her brother starting to get sick now. Denies any chest pain or shortness of breath. No additional symptoms or concerns at this time. Related Data Home Medications ?Medication ?Instructions ?Recorded ?Confirmed ?Last Taken ?Type cetirizine 10 mg capsule (Zyrtec) 10 mg PO DAILY 12/27/21 04/24/23 Unknown History Allergies Allergy/AdvReac Type Severity Reaction Status Date / Time peanut Allergy Unknown Unknown Verified 11/03/24 01:41 Review of Systems 2 Review of Systems: All systems are reviewed and are negative unless stated otherwise in the HPI. [facility] Past Medical History Medical History BMI over 35 H/O nose disorder BMI 36.0-36.9,adult BMI 35.0-35.9,adult COVID-19 BMI 33.0-33.9,adult Surgical History Surgical History History of tonsillectomy History of foot surgery Family History Family History Father Hypertension COVID-19 Mother COVID-19 Anxiety Thyroid activity decreased Sibling Endometriosis Thyroid activity decreased Other Family history of malignant neoplasm Social History Social History Smoking status: Never smoker Second hand tobacco smoke exposure: Yes Alcohol intake: current Substance use: never Substance use type: does not use Lack of Transportation: No Lack of Food: Never True Current Housing: I Have Housing Concerned About Future Housing: No Difficulty Paying Gas/Electric Bills: No Difficulty Paying for Meds: No Currently Unemployed: No Education: High School Diploma/GED Living arrangements: with family Occupation/Education: occupation Additional occupation/education comments: [employer] for a family. Gender identity (if verbalized by the patient): Female Spiritual care concerns: No Exam 2 Narrative: General: Alert, awake, afebrile, in no acute distress. HEENT: PERRL, no rhinorrhea, no post nasal drip, oropharynx clear. Neck: Trachea midline, no JVD, no lymphadenopathy. Cardiovascular: Regular rate and rhythm, no murmurs, rubs or gallops, no peripheral edema. Respiratory: Clear to auscultation bilaterally, no tachypnea, no wheezing, no rhonchi, no rubs, no respiratory distress. Abdomen: Soft, nontender, nondistended, no rebound, no guarding, no peritoneal signs. Musculoskeletal: No joint swelling or deformity, normal muscle tone. Skin: No rashes or petechia, no signs of infection. Psychiatric: Alert and oriented, normal behavior and judgment for situation. Neurological: Alert and oriented to person, place, and time. Follows all commands. No focal deficits, speech is clear and fluent. Course Vital Signs Vital signs: Vital Signs Temperature 97.8 F 11/03/24 01:56 Pulse Rate 95 11/03/24 01:56 Respiratory Rate 15 11/03/24 01:56 Blood Pressure 108/73 11/03/24 01:56 Pulse Oximetry 99 11/03/24 01:56 Oxygen Delivery Room Air 11/03/24 01:56 Temperature 97.8 F 11/03/24 01:56 Pulse Rate 95 11/03/24 01:56 Respiratory Rate 15 11/03/24 01:56 Blood Pressure 108/73 11/03/24 01:56 Pulse Oximetry 99 11/03/24 01:56 Oxygen Delivery Room Air 11/03/24 01:56 Medical Decision Making [facility] Narrative Medical decision making narrative: The patient was evaluated by myself in the emergency department. History is obtained from patient who is an independent historian and physical exam was performed. External medical records were reviewed at this time. IV was established and pertinent tests were ordered. Patient was administered 1 L IV fluid bolus with normal saline and 4 mg of IV Zofran for nausea/vomiting. Laboratory results obtained revealing no acute process. Urinalysis revealed urinary tract infection. Differential diagnosis considerations include acute viral syndrome, infectious diarrhea, gastroenteritis, dehydration, electrolyte derangements. Comorbidities impacting this visit include none. I have evaluated and discussed social determinants of health with the patient that could potentially impact subsequent diagnosis and treatment plans. On repeat assessment of the patient, reevaluation revealed that the patient is doing well and is in no acute distress. Patient symptoms have improved since she arrived to our emergency department. Repeat vital signs were all reviewed and noted to be stable. Differential diagnosis and treatment plan were discussed with the patient at bedside. Patient agrees with discussion and after shared medical decision making agrees with discharge. All questions were answered to the patient's satisfaction. Patient will follow up with her PCP in 3-5 days. Script for Zofran and cephalexin was sent to patient's pharmacy to use as prescribed for nausea/vomiting and for her UTI. Patient was provided with strict return precautions and instructed to return to the emergency department if any new or worsening symptoms develop. The patient was discharged in stable condition. Vital Signs Vital Signs: Vital Signs Temperature 97.8 F 11/03/24 01:56 Pulse Rate 95 11/03/24 01:56 Respiratory Rate 15 11/03/24 01:56 Blood Pressure 108/73 11/03/24 01:56 Pulse Oximetry 99 11/03/24 01:56 Oxygen Delivery Room Air 11/03/24 01:56 Temperature 97.8 F 11/03/24 01:56 Pulse Rate 95 11/03/24 01:56 Respiratory Rate 15 11/03/24 01:56 Blood Pressure 108/73 11/03/24 01:56 Pulse Oximetry 99 11/03/24 01:56 Oxygen Delivery Room Air 11/03/24 01:56 Lab Data 11/03/24 01:58 11/03/24 01:58 Labs: Lab Results 11/03/24 11/03/24 11/03/24 Range/Units 01:58 02:08 02:46 WBC 9.9 (4.5-10.0) K/mm3 RBC 5.03 (4.2-5.4) M/mm3 Hgb 13.3 (12.0-15.0) g/dL Hct 40.7 (37.0-47.0) % MCV 80.9 (80-100) fl MCH 26.4 (26-34) pg MCHC 32.7 (32-36) g/dl RDW 14.3 (11.5-14.5) % Plt Count 297 (150-375) k/mm3 MPV 11.8 H (7.4-10.4) fl Immature Gran % (Auto) 0.3 (0-0.5) % Neut % (Auto) 87.4 H (45.5-73.1) % Lymph % (Auto) 7.5 L (18.3-44.2) % [place] % (Auto) 4.2 (2.6-8.5) % Eos % (Auto) 0.2 (0-4.4) % Baso % (Auto) 0.4 (0.2-1.2) % Lymph # (Auto) 0.74 L (0.9-3.2) K/mm3 [place] # (Auto) 0.4 (0.1-0.6) K/mm3 Eos # (Auto) 0.0 (0-0.3) K/mm3 Baso # (Auto) 0.0 (0.0-0.1) K/mm3 Abs Immat Gran (auto) 0.03 (0.00-0.031) K/mm3 Absolute Neuts (auto) 8.6 H (1.3-6.7) K/mm3 Absolute Nucleated RBC 0.000 (0.0-0.012) K/mm3 Nucleated RBC % 0.0 (0.0-0.2) % Sodium 137 (137-145) mmol/L Potassium 3.3 L (3.4-5.0) mmol/L Chloride 102 (98-107) mmol/L Carbon Dioxide 21 L (22-30) mmol/L Anion Gap 14 H (4-12) mmol/L BUN 8 (7-17) mg/dL Creatinine 0.69 L (0.7-1.0) mg/dL Estim Creat Clear Calc 129 ml/min Estimated GFR > 60 (59 - ) Glucose 112 H (65-110) mg/dL Calcium 8.8 (8.4-10.2) mg/dL Total Bilirubin 0.7 (0.2-1.3) mg/dL AST 43 H (14-36) U/L ALT 41 H (6-35) U/L Alkaline Phosphatase 108 (38-126) U/L Total Protein 8.0 (6.3-8.2) g/dL Albumin 4.3 (3.5-5.1) g/dL Lipase 52 (23-300) U/L Urine Color Yellow (Yellow) Urine Appearance Clear (Clear) Urine pH 5.5 (5.0-9.0) Ur Specific [place] 1.017 (1.001-1.035) Urine Protein Trace (Negative) mg/dL Urine Glucose (UA) Negative (Negative) mg/dL Urine Ketones Negative (Negative) mg/dL Ur Blood (Man) Negative (Negative) Urine Nitrate Negative (Negative) Urine Bilirubin Negative (Negative) Urine Urobilinogen 0.2 (<2.0) mg/dL Add Ur Microanalysis Reviewed Leukocyte Esterase Rfl 1+ H (Negative) CHRIS/UL Urine RBC 0-2 (0-2) /hpf Urine WBC 11-20 H (0-3) /hpf Ur Squamous Epith Cells Few (Few) /hpf Urine Bacteria None seen /hpf Urine Casts 6-10 Urine Test Negative Influenza A (RT-PCR) Negative (Negative) Influenza B (RT-PCR) Negative (Negative) RSV (RT-PCR) Negative (Negative) SARS-CoV-2 RNA (RT-PCR) Negative (Negative) Discharge Plan Discharge Clinical Impression: Nausea vomiting and diarrhea, Gastroenteritis, UTI (urinary tract infection) Patient Disposition: Home, Self-Care Condition: Improved Instructions: Antibiotic Form, Urinary Tract Infection in Women (DC), Gastroenteritis (ED) Additional Instructions: Please follow-up with your family doctor within the next 3-5 days. Return to the emergency department for any new or worsening symptoms develop. Use the prescribed Zofran as needed for nausea/vomiting. Take the prescribed antibiotic as instructed for UTI. Patient Language: Malay Prescriptions: New ondansetron 4 mg tablet,disintegrating 4 mg PO Q8H PRN (Reason: nausea and vomiting) Qty: 10 0RF cephalexin 500 mg capsule 500 mg PO Q12H 5 Days Qty: 10 0RF No Action prednisone 10 mg tablet 30 mg PO DAILY Qty: 15 0RF Zyrtec 10 mg Capsule 10 mg PO DAILY Follow-up/Referrals: Arsenio Dixon MD [Primary Care Provider] - 3 Days Stand Alone Forms: Work/School Release IP Time of Disposition: 03:41
[2024-11-03 03:45] VITALS: O2SAT 96
[2024-11-03 04:01] VITALS: BP 117/76; PULSE 68; RESP 16; O2SAT 98
== END 2024-11-03 04:02 | disposition home or self-care (01) ==
PROVIDERS: Emergency Provider Emergency Medicine; PCP Family Medicine
DX: K52.9 Noninfective gastroenteritis and colitis, unspecified (principal); N39.0 Urinary tract infection, site not specified; Z20.822 Contact with and (suspected) exposure to COVID-19
CPT/HCPCS: 36415; 80053; 81001; 81025; 83690; 85025; 87086; 87637; 96361; 96374; 99284; J2405; J7030

== ENCOUNTER 2025-05-19 12:53 | Emergency (ER) | payer BC, SELFPAY ==
[2025-05-19] VITALS (7 sets, daily range): BP systolic 115–128; BP diastolic 77–95; PULSE 65–91; RESP 17–20; TEMP 36.6; O2SAT 74–100
--- NOTE | ~2025-05-19 | US_ITS ---
EXAMINATION: US pelvic complete INDICATION: Right lower quadrant pain Comparison:CT abdomen and pelvis May 19, 2025 TECHNIQUE: Multiple transabdominal sonographic images of the pelvis performed. FINDINGS: The uterus measures 8.8 x 3.6 x 4.9. The endometrial complex measures 10.2 mm which is within normal limits for a premenopausal patient. The right ovary measures 4.9 x 3.7 x 3.6 and the left ovary measures 2.9 x 2.6 x 1.8. There is a 3.6 x 2.8 x 2.6 cm anechoic structure with a few scattered internal echoes and no internal color Doppler flow in the right ovary. There are small follicles in each ovary. Normal doppler signal in both ovaries. Small amount of free fluid in the pelvis. There are no abnormal masses seen on either side. IMPRESSION: 1. There is an indeterminate 3.6 cm mildly complicated right ovarian cystic structure. A follow-up pelvic ultrasound in 3 months is recommended. 2. Otherwise, unremarkable study. Reviewed, dictated and finalized at location Q. IMPRESSION: 1. There is an indeterminate 3.6 cm mildly complicated right ovarian cystic str ucture. A follow-up pelvic ultrasound in 3 months is recommended. 2. Otherwise, unremarkable study.
--- NOTE | ~2025-05-19 | CT_ITS ---
EXAMINATION: CT abdomen pelvis w con DATE: 05/19/2025 15:41 INDICATION: Right lower quadrant pain. TECHNIQUE: Computed tomography (CT) of the abdomen and pelvis was performed with 100 cc Omnipaque 350 intravenous contrast. The dose-length product was 848.59 mGy-cm. Automated exposure control and iterative reconstruction technique were employed. COMPARISON: None. FINDINGS: Lung bases are unremarkable. Heart size normal. The liver, spleen, pancreas, adrenal glands and right kidney are unremarkable. There is a subcentimeter hypodensity of the left kidney, most likely benign cysts. No hydronephrosis. There is a 4.5 x 3.4 cm right ovarian cyst. Nonobstructive bowel gas pattern. Normal appendix. No acute osseous abnormality. No significant vascular abnormality. No lymphadenopathy. Gallbladder not identified, possibly surgically absent. The appendix is unremarkable. IMPRESSION: 1. Right ovarian cyst measuring 4.5 cm. Reviewed, dictated and finalized at location O.
--- OUTSIDE RECORDS SUMMARY | 2025-05-19 13:01 | XMS_ITS | Clinical Summary ---
Author Organization [facility] Address [address] [place] [id number] Care Team Providers Care Business Office Representative Name Role Phone Unavailable Primary Care Provider [...] series) 2018 COVID-19 Vaccine (2023-2 5 season) 2025 Meningococcal B Vaccine Aged Out No l onger eligible based on patient's age to complete this topic Meningococcal Vaccine Aged Out No arabella rad eligible based on patient's age to complete this topic Pneumococcal Vaccine: Pediat rics (0 to 5 Years) and At-Risk Patients (6 to 49 Years) Aged Out No longer eligible b ased on patient's age to complete this topic RSV Immunizations Under 20 Months Aged Out No longer eligible based on patient's age to complete this topic
--- OUTSIDE RECORDS SUMMARY | 2025-05-19 13:01 | XMS_ITS | Clinical Summary ---
Author Organization [facility] Address [address] [place] [address] Phone Care Team Providers Care Manager Laboratory Name Role Phone Ananya Quesada NP Primary Care Provider Jluis Robles MD Unavailable [phone] Allergies Active Allergy Reactions Criticality Noted Date Comments [place] Rash Medium 02/10/2011 Cat's Claw Eye irritation Low 02/10/2011 Peanut Oil Urticaria Medium 04/08/2010 Trichophyton Mentagrophytes Allergenic Extract Rash Medium 02/10/2011 Medications cetirizine (ZyrTEC) 10 mg tablet Take 1 tablet (10 mg total) by mouth daily Active vit 95-lwok-nptsi-dha 27mg iron- 800 mcg-250 mg capsule Take [...] times a day 60 capsule 11 4 Active Additional Information Patient not taking.Reported [...] by mouth daily 30 tablet 11 4 Active Additional Information Patient not taking.Reported [...] cell count. Consulted Dr. Raj Ugarte with [facility] who advised CT scan with IV [...] list O negative, rolando +, s/p rhogam 02/25, Rubella Immune Baby O+ Rhogam ordered Mom [...] WNL O negative, rolando +, s/p rhogam 02/25, Rubella Immune Baby O+ Rhogam given Mom [...] OTC allergy medications May benefit from seeing solar photovoltaic installer Assessment & Plan (01/09/2023 1:59 PM CDT): Follows with ENT, recently had turbinate resection procedure. Also being worked up for ARNIE. Has seen an solar photovoltaic installer in the past and had allergy shots [...] Cessation:Counseling Given: Not Answered Social Connection and Isolation Panel Answer Date Recorded In a typical week, how many times do you talk on the phone with family, friends, or neighbors? More than three times a week 04/15/2024 How often do you get togethe r with friends or relatives? More than three times a week 04/15/2024 Attends [employer] Not on file 04/15 Active Member [...] staff should administer the PHQ-9) 0 04/15/2024 [facility] Occupational Stress Questionnaire Answer [...] things needed for daily living? No 04/15/2024 [place] Depression Scale Answer Date Recorded [place] Depression Scale Total 0 05/31/2024 The thought of harming myself has occurred to me . Never 05/31/2024 PHQ-9 Answer Date Recorded PHQ-9 Total Score 0 04/15/2024 Housing Stability Vital Sign Answer Mode e Recorded In the last 12 months, was t here a time when you were not able to pay the mortgage or rent on time? No 04/15/2024 Number of Times Moved in the Last Year Not on fi le 04/15/2024 At any time in the past 12 m [facility], were you homeless or living in a fdc (including now)? No 04/15/2024 Personal Safety Answer Date Recorded Have you ever been in or are you currently in a harmful physical or emotional relationship or is someone making you feel afraid or unsafe? Denies 04/15/2024 Comments No Sex and Gender Information Value Date Recorded Sex Assigned at Not on file Legal Sex Female 6:49 AM EYELET RIVETER Gender Identity Not on file Sexual Orientation [...] Pickens MD Complications:Pre eclampsia, Post Hemorrhage Delivery Location:[facility] ([facility]) Last Filed Vital Signs Vital Sign [...] 3:32 PM CDT Height 170.2 cm (5' 7) 05/31/2024 3:32 PM CDT Body Mass Index 36.02 05/31/2024 3:32 PM CDT Plan of Treatment Health Maintenance Due Date Last Done Comments Varicella Vaccines (2 of 2 - 2-dose childhood series) 04/19/2005 10/30/2000 Regular Well Visit/Exam 18-64 2017 Cervical Cancer Screening 10/05/2024 10/05/2023 Influenza Vaccine (#1) 2025 09/11/2022, 2021 Depression Screening 05/31/2025 05/31/2024, 04/15/2024, 04/15/2024, Additional [...] HEPATITIS C ANTIBODY Routine 10/05/2023 2:38 PM EYELET RIVETER Encounter for supervision of normal in first trimester, unspecified PAP WITH REFLEX TO HIGH RISK HPV Routine 10/05/2023 12:35 PM EYELET RIVETER Screening for cervical cancer from Last 3 Months or Most Recently Relevant to Health Maintenance Results * Hepatitis C antibody Blood (10/05/2023 2:38 PM EYELET RIVETER) Hep C Ab Nonreactive Nonreactive MAGALIE CAPPS [...] revised on 2019. Blood 10/05/2023 2:38 PM EYELET RIVETER 10/05/2023 7:09 PM EYELET RIVETER us Barbara Shine MD LAB MICROBIOLOGY - GENERA L ORDERABLES Edited Result - Final MAGALIE [address] [facility] Department [place] [address] * Pap with reflex to High Risk HPV and Genotyping (Cytology Component) (10/05/2023 12:35 PM EYELET RIVETER) Thin prep (Pap test) 10/05/2023 12:35 PM EYELET RIVETER 10/06/2023 2:11 AM EYELET RIVETER Narrative PATHOLOGY [facility] - 10/11/2023 9:36 AM EYELET RIVETER EPIC results best viewed via link to PDF [facility] [place] [address] Note to Patients: This report may contain [...] Gender: F : 2000 (Age: 23) Address: [address] [place] [address] [facility]: [id number] Service: DEFAULT Location: Patient Type: [facility] SPECIMEN Taken: 10/05/2023 Received: 10/06/2023 Accessioned: 10/06/2023 [...] clinical information and biopsy results as indicated. [facility] Clinical Laboratory Improvement Amendments (CLIA) mandate that cytologic and histologic results be correlated for laboratory quality improvement engineer & improvement standards. FOR ALL HIGH-GRADE CASES [...] determined by the Surgical Pathology Department at [facility] as part of an ongoing senior quality assurance engineer program and in compliance with federally mandated [...] determined by the Surgical Pathology Department of [facility]. It has not been cleared or approved by the U. S. Food and Drug Administration. Barbara Shine MD LAB CYTOLOGY ORDERABLES F inal Result PATHOLOGY [facility] from Last 3 Months or Most Recently Relevant to Health Maintenance Insurance [facility] H[facility]/PPO Address: [address] [address] [place] [address] [facility] H[facility]/PPO Address: [address] [place] [id number] [employer] [facility] CHOICE PLUS [facility] HMO/PPO Address: [facility] [address] [place] [address] [employer] Advance Directives For more information, please contact: [phone] * Full Code (Latest Code Status on File) Date Activated Date Inactivated Comments 04/17/2024 1:22 AM 04/20/2024 5:03 PM * Full Code Date Activated Date Inactivated Comments 04/15/2024 3:50 PM 04/17/2024 1:22 AM Full CPR in ca se of cardiopulmonary arrest Care Teams Manager Laboratory Relationship Specialty Start Date End Date Ananya Quesada NP [address] [place] [address] PCP - General Family Medicine 01/09/23 Jluis Robles MD [address] [place] [id number] Otolaryngology 01/09/23
--- OUTSIDE RECORDS SUMMARY | 2025-05-19 13:01 | XMS_ITS | Clinical Summary ---
Author Organization [facility] Address [address] [place] [address] Care Team Providers Care Substation Operator Chief Name Role Phone Unavailable Primary Care Provider Unavailabl e Source Comments [facility],non-owned Affiliates and Associated Physician Practices is amultiple site organization consisting of ambulatory clinics and hospital sitesin [place], [place], [place] and [place]. This disclosure is being madepursuant to the Care Everywhere program and may not contain all information available regarding this patient. Last updated 18.[facility] Social[employer]ield Allergies Active Allergy Reactions Criticality Noted Date Comments Cat's Claw 02/10/2011 [place] Sweetflag Rhizome 02/11/20 11 Trichophyton Mentagrophytes 02/11/20 11 Peanut Oil Urticaria 04/08/2010 Medications * Be aware that medications may not be up to date on this document. Alwaysverify current medications with the patient. adapalene-benzo yl peroxide (EPIDUO) 0.1-2.5 % gel Apply to [...] 03/07/2012 Acute serous otitis media 03/07/2012 Immunizations Immunization Administration Dates Next Due DTaP VACCINE IM (6wk-6yrs) 03/22/2005,,02/19/2000,11/12,1999 HEP A PEDS 2 DOSE 10/30/2012,04/08/2010 HEP B VACCINE, PED/ADOL 07/25/2000,02/19/2000, HIB BOOSTER 12/28/2000, 0,1999,09/13 Human Papilloma Virus Pipe valent Vaccine 05/21/2013,01/01/2013,10/30/2012 MENINGOCOCCAL ACWY (MCV4P) VAC IM 04/08/2016, MMR 03/22/2005,07/25/2000 PNEUMOCOCCAL CONJ, PEDS 12/28/2000,07/25/2000, POLIO IPV 03/22/2005, 1,1999,09/13 PPD 03/22/2005,07/25/2000 TDAP (7yrs+) 04/08/2010 VARICELLA 10/30/2000 Social History Tobacco Use Types Packs/Day Years Used Date Smoking Tobacco: Never Smokeless Tobacco: Never Alcohol Use Standard Drinks/Week Comments No 0 (1 standard drink = 0.6 oz pur e alcohol) Comments No Sex and Gender Information Value Date Recorded Sex Assigned at Not on file Legal Sex Female 6:56 AM SECURITY CLERK Gender Identity Not on file Sexual Orientation [...] 11:12 AM CDT Height 168.9 cm (5' 6.5) 02/16/2017 1:59 PM CDT Body Mass Index - - Plan of Treatment Health Maintenance Due Date Last Done Comments HIV SCREENING 2014 CHLAMYDIA/GONORRHEA SCREENING 2015 HEPATITIS C SCREENING 07/05/2017 DTAP/TDAP/TD VACCINES (7 - Td or Tdap) 04/08/2020 04/08/2010, 03/22/2005, 12/28/2000, Additional history exists DEPRESSION SCREENING 09/11/2024 COVID-19 VACCINE ( season) 2025 INFLUENZA VACCINE (#1) 2025 ZOSTER VACCINE (1 of 2) 2049 HEPATITIS B VACCINE Completed 07/25/2000, 02/19/2000, 1999 HIB VACCINE Completed 12/28/2000, 02/09, 1999, Additional history exists PNEUMOCOCCAL VACCINE Completed 12/28/2000, 07/25/2000, 02/19/2000 HPV VACCINE Completed 05/21/2013, 12/11, 10/30/2012 MENINGOCOCCAL GROUPS A/C/Y/W VACCINE Completed 04/08/2016, 10/30/2012 MENINGOCOCCAL (Group B) VACCINE SHARED DECISION-MAKING Aged Out No longer eligible based on patient's age to complete this topic Goals Goal Patient Goal Type Associated Problems Recent Progress Patient-Stated? Author Use safety retraint in car Lifestyle On track( 017 11:12 AM CDT) Monse Nuñez Insurance Rafael CURRIE [address]
[2025-05-19 14:27] LABS: BEDSIDEPREGUCG Negative (Negative)
[2025-05-19 14:29] LABS: Hematocrit 39.9 % (37.0-47.0); Hemoglobin 12.9 g/dL (12.0-15.0); Immature Granulocyte Percent A 0.2 % (0-0.5); Lymphocytes Absolute Auto 1.63 K/mm3 (0.9-3.2); Mean Corpuscular HGB Conc 32.3 g/dl (32-36); Mean Corpuscular Hemoglobin 27.2 pg (26-34); Mean Corpuscular Volume 84.2 fl (80-100); Nucleated Red Blood Cells Absolute Auto 0.000 K/mm3 (0.0-0.012); Nucleated Red Blood Cells Perc 0.0 % (0.0-0.2); Platelet Count Result 289 k/mm3 (150-375); Red Blood Count 4.74 M/mm3 (4.2-5.4); White Blood Count 8.1 K/mm3 (4.5-10.0)
[2025-05-19 14:30] LABS: Add Urine Microscopic? NO; Appearance Urine Clear (Clear); Glucose Urine UA Negative (Negative); Leukocyte Esterase Ur Negative LEU/UL (Negative); Nitrate Urine Negative (Negative); Specific Grav Ur 1.008 (1.001-1.035)
--- OUTSIDE RECORDS SUMMARY | 2025-05-19 14:36 | XMS_ITS | Clinical Summary ---
Author Organization [facility] Address [address] [place] [address] Phone Care Team Providers Care Supervisor Plate Pasting Name Role Phone Ananya Quesada NP Primary Care Provider [phone] Jluis Robles MD Unavailable [phone] Allergies Active Allergy Reactions Criticality Noted Date Comments [place] Rash Medium 02/10/2011 Cat's Claw Eye irritation Low 02/10/2011 Peanut Oil Urticaria Medium 04/08/2010 Trichophyton Mentagrophytes Allergenic Extract Rash Medium 02/10/2011 Medications cetirizine (ZyrTEC) 10 mg tablet Take 1 tablet (10 mg total) by mouth daily Active vit 92-[id number]-dha 27mg iron- 800 mcg-250 mg capsule Take [...] cell count. Consulted Dr. Raj Ugarte with [facility] who advised CT scan with IV [...] OTC allergy medications May benefit from seeing manager fixed income Assessment & Plan (01/09/2023 1:59 PM CDT): Follows with ENT, recently had turbinate resection procedure. Also being worked up for ARNIE. Has seen an manager fixed income in the past and had allergy shots [...] than three times a week 04/15/2024 Attends [employer] Not on file 04/15 Active Member [...] staff should administer the PHQ-9) 0 04/15/2024 [facility] - Occupational Stress Questionnaire Answer Date [...] things needed for daily living? No 04/15/2024 Rayne Depression Scale Answer Date Recorded Rayne Depression Scale Total 0 05/31/2024 The thought [...] any time in the past 12 m [facility], were you homeless or living in a detention (including now)? No 04/15/2024 Personal Safety Answer Date Recorded Have you ever been in or are you currently in a harmful physical or emotional relationship or is someone making you feel afraid or unsafe? Denies 04/15/2024 Comments No Sex and Gender Information Value Date Recorded Sex Assigned at Not on file Legal Sex Female 6:49 AM LUMBER TRIMMER Gender Identity Not on file Sexual Orientation [...] Pickens MD Complications:Pre eclampsia, Post Hemorrhage Delivery Location:[facility] ([facility]) Last Filed Vital Signs Vital [...] HEPATITIS C ANTIBODY Routine 10/05/2023 2:38 PM LUMBER TRIMMER Encounter for supervision of normal in first trimester, unspecified PAP WITH REFLEX TO HIGH RISK HPV Routine 10/05/2023 12:35 PM LUMBER TRIMMER Screening for cervical cancer from Last 3 Months or Most Recently Relevant to Health Maintenance Results * Hepatitis C antibody Blood (10/05/2023 2:38 PM LUMBER TRIMMER) Hep C Ab Nonreactive Nonreactive MAGALIE CAPPS [...] revised on 2019. Blood 10/05/2023 2:38 PM LUMBER TRIMMER 10/05/2023 7:09 PM LUMBER TRIMMER us Barbara Shine MD LAB MICROBIOLOGY - GENERA L ORDERABLES Edited Result - Final MAGALIE [address] [facility] Department [place] [address] * Pap with reflex to High Risk HPV and Genotyping (Cytology Component) (10/05/2023 12:35 PM LUMBER TRIMMER) Thin prep (Pap test) 10/05/2023 12:35 PM LUMBER TRIMMER 10/06/2023 2:11 AM LUMBER TRIMMER Narrative PATHOLOGY [facility] - 10/11/2023 9:36 AM LUMBER TRIMMER EPIC results best viewed via link to PDF [facility] [place] [address] Note to Patients: This report may contain [...] Gender: F : 2000 (Age: 23) Address: [address] [place] [address] [facility] #: [id number] Service: DEFAULT Location: Patient Type: [facility] SPECIMEN Taken: 10/05/2023 Received: 10/06/2023 Accessioned: 10/06/2023 [...] clinical information and biopsy results as indicated. [facility] Clinical Laboratory Improvement Amendments (CLIA) mandate that cytologic and histologic results be correlated for laboratory quality project manager & improvement standards. FOR ALL HIGH-GRADE [...] determined by the Surgical Pathology Department at [facility] as part of an ongoing engagement quality consultant program and in compliance with federally mandated [...] determined by the Surgical Pathology Department of [facility]. It has not been cleared or approved by the U. S. Food and Drug Administration. Barbara Shine MD LAB CYTOLOGY ORDERABLES F inal Result PATHOLOGY [facility] from Last 3 Months or Most Recently Relevant to Health Maintenance Insurance [facility] [facility] CHOICE PL[employer] Advance Directives For more information, please contact: [phone] * Full Code (Latest Code Status on File) Date Activated Date Inactivated Comments 04/17/2024 1:22 AM 04/20/2024 5:03 PM * Full Code Date Activated Date Inactivated Comments 04/15/2024 3:50 PM 04/17/2024 1:22 AM Full CPR in ca se of cardiopulmonary arrest Care Teams Supervisor Plate Pasting Relationship Specialty Start Date End Date Ananya Quesada NP [address] [place] [address] PCP - General Family Medicine 01/09/23 Jluis Robles MD [address] [place] [id number] Otolaryngology 01/09/23
--- OUTSIDE RECORDS SUMMARY | 2025-05-19 14:37 | XMS_ITS | Clinical Summary ---
Author Organization [facility] Address [address] [place] [id number] Care Team Providers Care Fiscal Services Director Name Role Phone Unavailable Primary Care [...]
--- OUTSIDE RECORDS SUMMARY | 2025-05-19 14:37 | XMS_ITS | Clinical Summary ---
Author Organization [facility] Address [address] [place] [address] Care Team Providers Care Tapper Operator Name Role Phone Unavailable Primary Care Provider Unavailabl e Source Comments [facility],non-owned Affiliates and Associated Physician Practices is amultiple site organization consisting of ambulatory clinics and hospital sitesin [place], [place], [place] and [place]. This disclosure is being madepursuant to the Care Everywhere program and may not contain all information available regarding this patient. 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
[2025-05-19 14:50] LABS: Alanine Aminotransferase 18 U/L (6-35); Albumin Level 4.3 g/dL (3.5-5.1); Alkaline Phosphatase 87 U/L (38-126); Anion Gap 8 mmol/L (4-12); Aspartate Amino Transferase 31 U/L (14-36); Bilirubin,Total 0.4 mg/dL (0.2-1.3); Blood Urea Nitrogen 13 mg/dL (7-17); Calcium 9.5 mg/dL (8.4-10.2); Carbon Dioxide 23 mmol/L (22-30); Chloride 103 mmol/L (98-107); Estimated CRCL calculation 139 ml/min; Estimated Glomerular Filt Rate > 60; Glucose 91 mg/dL (65-110); Lipase 110 U/L (23-300); Potassium 4.3 mmol/L (3.4-5.0); Sodium 134 mmol/L (137-145); Total Protein 7.5 g/dL (6.3-8.2)
--- NOTE | 2025-05-19 15:48 | ED_ITS ---
HPI - Abdominal Pain General Chief Complaint: Abdominal Pain Stated Complaint: RLQ pain x 1 hr Time Seen by Provider: 05/19/25 14:09 Source: patient Mode of arrival: ambulatory Limitations: no limitations History of Present Illness HPI narrative: Patient is a 24-year-old female who presents the ED with report of right lower quadrant abdominal pain. Patient reports pain has been intermittent and mild over the past 2 weeks, but became more excruciating/constant today. Pain is worse with sitting today. She did not take anything for pain today. Patient also reports having some rectal pain, nausea, pressure with urination, urinary frequency. Denies dysuria, hematuria. Denies diarrhea, constipation, fevers. Patient had her son around 1 year ago. Reports irregular menstrual cycles since then. Related Data Home Medications ?Medication ?Instructions ?Recorded ?Confirmed ?Last Taken ?Type cetirizine 10 mg capsule (Zyrtec) 10 mg PO DAILY 12/2712/10/24 Unknown History spironolactone 50 mg tablet mg PO DAILY 11/27/2412/10 Unknown History Allergies Allergy/AdvReac Type Severity Reaction Status Date / Time peanut Allergy Unknown Unknown Verified 05/19/25 14:06 Review of Systems 2 Review of Systems: All systems reviewed & are unremarkable except as noted in HPI. All systems reviewed & are unremarkable except as noted in HPI and below PMFSH Past Medical History Medical History Seasonal allergies BMI over 35 H/O nose disorder BMI 36.0-36.9,adult BMI 35.0-35.9,adult COVID-19 BMI 33.0-33.9,adult Surgical History Surgical History History of tonsillectomy History of foot surgery Family History Family History Father Hypertension COVID-19 Mother COVID-19 Anxiety Thyroid activity decreased Sibling Endometriosis Thyroid activity decreased Other Family history of malignant neoplasm Social History Social History Smoking status: Never smoker Second hand tobacco smoke exposure: Yes Alcohol intake: current Substance use: never Substance use type: does not use Lack of Transportation: No Lack of Food: Never True Current Housing: I Have Housing Concerned About Future Housing: No Difficulty Paying Gas/Electric Bills: No Difficulty Paying for Meds: No Currently Unemployed: No Education: High School Diploma/GED Living arrangements: with family Occupation/Education: occupation Additional occupation/education comments: [employer] for a family. Gender identity (if verbalized by the patient): Female Spiritual care concerns: No Exam 2 Narrative: GENERAL: Well appearing, obese with BMI of 37.0, non-toxic, in no acute distress. HEAD: Normocephalic, atraumatic. RESPIRATORY: Airway patent, respirations nonlabored. Clear to auscultation bilaterally, no rales, rhonchi, wheezing. CARDIOVASCULAR: Regular rate and rhythm without murmurs, rubs, or gallops. ABDOMINAL: Soft, mild tenderness palpation right mid to lower abdomen, no rebound, nondistended. Normoactive BS. MUSCULOSKELETAL: Moves all extremities. No gross deformities. SKIN: Warm, dry, normal color. NEURO: A&O X3. Speech clear. Cranial nerves II-XII grossly intact. Steady gait. No ataxic movements. PSYCHIATRIC: Appropriate mood and affect. Normal interaction. Course Vital Signs Vital signs: Vital Signs Temperature 97.9 F 05/19/25 13:02 Pulse Rate 91 05/19/25 13:02 Respiratory Rate 18 05/19/25 13:02 Blood Pressure 125/95 H 05/19/25 13:02 Pulse Oximetry 97 05/19/25 13:02 Oxygen Delivery Room Air 05/19/25 13:02 Temperature 98 F 05/19/25 14:06 Pulse Rate 70 05/19/25 16:56 Respiratory Rate 18 05/19/25 16:56 Blood Pressure 128/90 05/19/25 16:56 Pulse Oximetry 100 05/19/25 16:56 Oxygen Delivery Room Air 05/19/25 14:06 MDM - Abdominal Pain MDM Narrative Medical decision making narrative: Patient presented to ED with intermittent right lower quadrant abdominal pain over the past 2 weeks, worsening today. Vital signs are stable upon arrival. Patient does report pain is improved currently upon my evaluation. Did not want anything for pain currently. Cbc without leukocytosis or anemia. CMP is unremarkable. Normal LFTs and lipase. History of previous cholecystectomy. UA is clear. test is negative. CT of abdomen/pelvis was obtained and showing right-sided ovarian cyst, no other acute findings. Pelvic ultrasound obtained and again showing right-sided ovarian cyst, no evidence of torsion. Discussed lab and imaging findings, overall workup with patient. She has remained stable throughout ED stay, has not required pain medication. Feel she is safe for discharge home with outpatient OBGYN follow-up. Advised will likely need repeat ultrasound in the future. Discussed further pain management, given strict return precautions. Patient in agreement with plan, feels comfortable going home. Discharged in stable condition. Medical Records Attestation: I reviewed the patient's medical records. Lab Data Attestation: I reviewed the patient's lab results. 05/19/25 14:21 05/19/25 14:21 Labs: Lab Results 05/19/25 05/19/25 Range/Units 14:20 14:21 WBC 8.1 (4.5-10.0) K/mm3 RBC 4.74 (4.2-5.4) M/mm3 Hgb 12.9 (12.0-15.0) g/dL Hct 39.9 (37.0-47.0) % MCV 84.2 (80-100) fl MCH 27.2 (26-34) pg MCHC 32.3 (32-36) g/dl RDW 13.6 (11.5-14.5) % Plt Count 289 (150-375) k/mm3 MPV 11.7 H (7.4-10.4) fl Immature Gran % (Auto) 0.2 (0-0.5) % Neut % (Auto) 68.4 (45.5-73.1) % Lymph % (Auto) 20.2 (18.3-44.2) % Weld % (Auto) 8.6 H (2.6-8.5) % Eos % (Auto) 1.9 (0-4.4) % Baso % (Auto) 0.7 (0.2-1.2) % Lymph # (Auto) 1.63 (0.9-3.2) K/mm3 Weld # (Auto) 0.7 H (0.1-0.6) K/mm3 Eos # (Auto) 0.2 (0-0.3) K/mm3 Baso # (Auto) 0.1 (0.0-0.1) K/mm3 Abs Immat Gran (auto) 0.02 (0.00-0.031) K/mm3 Absolute Neuts (auto) 5.5 (1.3-6.7) K/mm3 Absolute Nucleated RBC 0.000 (0.0-0.012) K/mm3 Nucleated RBC % 0.0 (0.0-0.2) % Sodium 134 L (137-145) mmol/L Potassium 4.3 (3.4-5.0) mmol/L Chloride 103 (98-107) mmol/L Carbon Dioxide 23 (22-30) mmol/L Anion Gap 8 (4-12) mmol/L BUN 13 D (7-17) mg/dL Creatinine 0.67 L (0.7-1.0) mg/dL Estim Creat Clear Calc 139 ml/min Estimated GFR > 60 (59 - ) Glucose 91 (65-110) mg/dL Calcium 9.5 (8.4-10.2) mg/dL Total Bilirubin 0.4 (0.2-1.3) mg/dL AST 31 (14-36) U/L ALT 18 (6-35) U/L Alkaline Phosphatase 87 (38-126) U/L Total Protein 7.5 (6.3-8.2) g/dL Albumin 4.3 (3.5-5.1) g/dL Lipase 110 (23-300) U/L Urine Color Yellow (Yellow) Urine Appearance Clear (Clear) Urine pH 6.0 (5.0-9.0) Ur Specific [place] 1.008 (1.001-1.035) Urine Protein Negative (Negative) mg/dL Urine Glucose (UA) Negative (Negative) mg/dL Urine Ketones Negative (Negative) mg/dL Ur Blood (Man) Negative (Negative) Urine Nitrate Negative (Negative) Urine Bilirubin Negative (Negative) Urine Urobilinogen 0.2 (<2.0) mg/dL Leukocyte Esterase Rfl Negative (Negative) CHRIS/UL POC Urine HCG, Qual Negative (Negative) Imaging Data Attestation: I personally reviewed and interpreted this imaging study as follows: Radiologist's impression: ITS Impressions Abdomen/Pelvis CT 05/19/25 16:13 IMPRESSION: 1. Right ovarian cyst measuring 4.5 cm. Pelvis Ultrasound 05/19/25 16:24 IMPRESSION: 1. There is an indeterminate 3.6 cm mildly complicated right ovarian cystic structure. A follow-up pelvic ultrasound in 3 months is recommended. 2. Otherwise, unremarkable study. Discharge Plan Discharge Clinical Impression: Cyst of right ovary, Right lower quadrant abdominal pain Patient Disposition: Home Condition: Stable Instructions: Antibiotic Form, Ovarian Cyst (ED), Abdominal Pain (ED) Additional Instructions: Continue Tylenol/ibuprofen as needed for pain. You may also use a heating pad to your abdomen. Follow-up with OBGYN for further evaluation and repeat imaging of the ovarian cyst in the future. Return to the ED if you experience worsening or severe pain, unable to keep down food or drink, heavy vaginal bleeding, difficulty urinating, persistent fevers, or any other symptoms of concern. Patient Language: Luxembourgish Prescriptions: No Action spironolactone 50 mg tablet PO DAILY Zyrtec 10 mg Capsule 10 mg PO DAILY Follow-up/Referrals: Arsenio Dixon MD [Primary Care Provider, Family Practice] Bj Simmons MD [Physician, [facility]] Referral Note: OBGYN Time of Disposition: 17:00
== END 2025-05-19 17:22 | disposition home or self-care (01) ==
PROVIDERS: Emergency Medicine; Emergency Provider Physician Assistant; PCP Family Medicine
DX: N83.201 Unspecified ovarian cyst, right side (principal); Z86.16 Personal history of COVID-19; Z77.22 Contact with and (suspected) exposure to environmental tobacco smoke (acute) (chronic); Z90.49 Acquired absence of other specified parts of digestive tract
CPT/HCPCS: 36415; 74177; 76856; 80053; 81003; 81025; 83690; 85025; 99284; Q9967